=== PATIENT | female | born 1965 | race Caucasian/White ===

== ENCOUNTER 2024-08-22 07:02 | Day surgery (SDC) | payer OTHER, SELFPAY ==
--- OUTSIDE RECORDS SUMMARY | 2024-08-15 15:29 | XMS_ITS | Referral Summary ---
Author Organization [facility] Address [address] [place] [address] Care Team Providers Care Chiropractic Teacher Name Role Phone Jannet Roger Primary Care Provider [phone] Encounters Date Type Department Care Team Description 07/14/2024 9:22 AM EDT - 07/14/2024 12:21 PM EDT Emergency [facility] Emergency Department [address] [place] [phone] Chris Steele MD Abdominal pain, unspecified abdominal location (Primary Dx) Discharge Disposition: Home or Self Care (01) 06/06/2024 Orders Only [facility] [address] [place] [address] Jannet Roger Diabetes mellitus, latent (Primary Dx) 05/19/2024 myChart Message Initial Department [address] [place] [phone] Mychart, Generic Provider Questionnaire Submission 05/17/2024 1:05 PM EST Lab [facility] Draw Site Department [address] [place] [address] Abdominal pain, unspecified abdominal location (Primary Dx) from Last 3 Months Allergies Active Allergy Reactions Criticality Noted Date Comments Amitriptyline Dizziness,Unknown,O ther (see comments) Medium 03/06/2013 Impairs vision. Diplopia double vision Baclofen Other (see comments) 12/16/2023 Bupropion Nausea 08/22/2021 Cephalexin Anaphylaxis,Hives,S welling High 03/06/2013 face Gabapentin Diarrhea,Nausea 05/29/2019 Naproxen Other (see comments),Swelling High 03/06/2013 GI upset Throat swells Nsaids (Non-Steroidal Anti-Inflammatory Drug) Anaphylaxis,Swellin g High 05/29/2019 Throat swellling Sulfa (Sulfonamide Antibiotics) Nausea High 03/06/2013 Tramadol Other (see comments) Low 05/16/2023 Double vision Medications omeprazole OTC (PriLOSEC OTC) 20 mg EC tablet Take 40 mg by mouth in the morning. Active valACYclovir (VALTREX) 500 mg tablet Take 1 tablet by mouth 2 times a day as needed (outbreak). Active Rozerem 8 mg tablet Take 1 tablet by mouth nightly. Active Lyrica 25 mg capsule Take 1 capsule 3 times a day by oral route. 4 Active pravastatin (PRAVACHOL) 40 mg tablet Take 40 mg by mouth nightly. Active oxyCODONE-aceta minophen (PERCOCET) 10-325 mg per tablet Take 1 tablet by mouth 4 times a day. 4 Active naloxone HCl (Narcan) 4 mg/actuation nasal spray take 2 spray BY NASAL ROUTE as directed by prescriber if needed Active lidocaine (XYLOCAINE) 5% ointment 6 inches 3 times a day. 4 Active dextroamphetami ne-amphetamine (ADDERALL) 10 mg tablet Take 10 mg by mouth in the morning. Active cyanocobalamin (VITAMIN B12) 500 mcg tablet Take 500 mcg by mouth in the morning. Active cetirizine (ZyrTEC) 10 mg tablet Take 10 mg by mouth in the morning. Active carisoprodoL (SOMA) 350 mg tablet 4 Active albuterol (ProAir HFA) 90 mcg inhaler Inhale 2 puffs by mouth every [address]. [address] (CYMBALTA) 30 mg capsule Take 30 mg by mouth once a day. Active prednisoLONE acetate (PRED FORTE) 1% ophthalmic suspension Instill 1 drop into the right eye 4 times a day. Instill 1 drop into surgical EYE 4x a day 1 wk, 3x a day, 2x a day 1 wk, 1x a day 1 wk - then stop 5 mL 1 4 Active Social History Tobacco Use Types Packs/Day Years Used Date Smoking Tobacco: Every Day Cigarettes 0.3 26.3 Started: 1998 Smokeless Tobacco: Never Tobacco Cessation:Ready to Q uit: Not Asked; Counseling Given: Not Answered Alcohol Use Standard Drinks/Week Comments Not Currently 0 (1 standard drink = 0.6 oz pur e alcohol) Comments No Sex and Gender Information Value Date Recorded Sex Assigned at Female 08/30/2023 11:02 AM EDT Legal Sex Female 12:05 AM EDT Gender Identity Female 12/16/2023 4:16 PM EDT Sexual Orientation Straight 01/16/2024 8: 48 AM EDT Last Filed Vital Signs Vital Sign Reading Time Taken Comments Blood Pressure 105/66 07/14/2024 9:44 AM EDT Pulse 68 07/14/2024 9:44 AM EDT Temperature 36.6 ??C (97.8 ??F) 07/14/2024 9:44 AM ED T Respiratory Rate 20 07/14/2024 9:44 AM EDT Oxygen Saturation 99% 07/14/2024 9:44 AM EDT Inhaled Oxygen Concentration - - Weight 70.3 kg (155 lb) 07/14/2024 9:20 AM EDT Height 157.5 cm (5' 2 ) 01/23/2024 8:40 AM EDT Body Mass Index 28.35 01/23/2024 8:40 AM EDT Plan of Treatment Upcoming Encounters Date Type Department Care Team (Late st Contact Info) Description 08/26/2024 Orders Only Shweta ANGULO @ [address] [address] [address] [place] [address] [place] [phone] Generalized abdominal pain 08/26/2024 1:15 PM EDT Appointment Shweta ANGULO @ [address] [address] 04/08/2025 10:15 AM EST Office Visit [facility] Ophthalmology [address] [place] [phone] Jessica Cardozo MD [address] [place] [phone] Medical Devices Implanted Type Area Employee Adviser Device Identifier Shelf Expiration Date Model / Serial / Lot System Lens Intraocular Posterior Chamber Aspheric Preloaded Tensionglide Plunger 18.5 Diopter Ultrasert [employer] - [id number] - [id number] Implanted:Qty: 1 on 01/23/2024 by Jessica Cardozo MD at [facility] Lens ANAID 08/22/2025 [id number] 18.5 / [id number] / Procedures * Due to [place] state law, this organization might not be sharing negative HIV tests. Procedure Name Priority Date/Time Associated Diagnosis Comments CT ABDOMEN PELVIS W CONTRAST STAT 07/14/2024 10:34 AM EDT RAPID COVID-19, FLU A, FLU B & RSV RNA PCR, SYMPTOMATIC (ED ONLY) STAT 07/14/2024 9:44 AM EDT LIPASE STAT 07/14/2024 9:41 AM EDT COMPREHENSIVE METABOLIC PANEL STAT 07/14/2024 9:41 AM EDT CBC AUTO DIFFERENTIAL STAT 07/14/2024 9:41 AM EDT SMEAR REVIEW Routine 05/17/2024 1:09 PM EST Abdominal pain, unspecified abdominal location IMMUNOGLOBULINS PANEL (IGG, IGA, IGM) Routine 05/17/2024 1:09 PM EST Abdominal pain, unspecified abdominal location CELIAC DISEASE DIAGNOSITC PANEL Routine 05/17/2024 1:09 PM EST Abdominal pain, unspecified abdominal location TISSUE TRANSGLUTAMINASE (TTG), IGA Routine 05/17/2024 1:09 PM EST Abdominal pain, unspecified abdominal location CBC AUTO DIFFERENTIAL Routine 05/17/2024 1:09 PM EST Abdominal pain, unspecified abdominal location LIPASE Routine 05/17/2024 1:09 PM EST Abdominal pain, unspecified abdominal location HEPATIC FUNCTION PANEL Routine 1:09 PM EST Abdominal pain, unspecified abdominal location from Last 3 Months Results * Due to [place] state law, this organization might not be sharing negative HIV tests. * CT Abd Pelvis W Contrast (07/14/2024 10:34 AM EDT) Anatomical Region Laterality Modality Body Computed Tomogra phy 07/14/2024 10:4 5 AM EDT Impressions 07/14/2024 11:16 AM EDT 1. ??No acute abnormality in the abdomen and pelvis. 2. ??Incidentally noted is a 0.7 cm hypodense ovoid lesion within the body of the pancreas. Differential could include unilocular cyst or intraductal papillary mucinous neoplasm. An MRCP can be obtained on a nonemergent outpatient basis for further characterization. (Incidental finding) A(n) Incidental - ED actionable finding has been communicated to the ordering or responsible provider via the [employer] system on 07/14/2024 11:16 AM. ??Receipt of this communication by the responsible provider will be documented in [employer] upon receiving acknowledgement if applicable, Message ID [id number]. I, Serge Chen, have reviewed the examination and concur with the findings as reported or so edited. Trainee: ??Carlitos Green If this radiology report contains a blank impression section, it is an incomplete radiology report. ??Please contact the interpreting radiologist or applicable radiology division as soon as possible to obtain the completed interpretation. ? Workstation ID: [id number] Up-to-date CT equipment and radiation dose reduction techniques were employed. CTDIvol: 13.2 mGy. DLP: 555 mGy-cm. Narrative 07/14/2024 11:16 AM EDT EXAMINATION: CT ABDOMEN PELVIS W CONTRAST INDICATION: Left-sided abd pain, recently diagnosed diverticulitis, completed abx, n/v/d/constipation TECHNIQUE: Images of the abdomen and pelvis were obtained with intravenous contrast. Coronal and sagittal reformats were generated. COMPARISON: Chest radiographs from 08/27/2023. ?? FINDINGS: LOWER THORAX: Minimal dependent bibasilar and lingular atelectasis. No pleural effusion. Normal cardiac size and morphology. Pericardium is within normal limits. HEPATOBILIARY: There is an area of focal fatty sparing adjacent to the fissure for ligamentum teres. Patent portal and hepatic veins. Normal gallbladder. No biliary ductal dilatation. SPLEEN: No splenomegaly. PANCREAS: There is a 0.7 cm hypodense ovoid lesion, too small to accurately characterize, within the body of the pancreas (2:36). No ductal dilatation. ADRENAL GLANDS: No adrenal nodules. KIDNEYS/URETERS: No hydronephrosis, calculi, or solid mass lesions. GI TRACT: No distention or wall thickening. ??Diverticula are seen scattered throughout the large bowel, most prominent in descending and sigmoid colon. ??There is no evidence of acute diverticulitis, no pericolonic collection. ??Large bowel is predominantly collapsed. ??No evidence of small bowel obstruction. ??The appendix is within normal limits. PERITONEUM/RETROPERITONEUM: No ascites or free air. LYMPH NODES: No lymphadenopathy. VESSELS: Abdominal aorta is nonaneurysmal and is normal in caliber. Mild atherosclerosis of the distal abdominal aorta tributaries. The inferior vena cava is within normal limits. The hepatic, splenic, superior mesenteric, and portal veins are patent. PELVIC ORGANS/BLADDER: Urinary bladder is within normal limits. Surgical absence of the uterus. BONES AND SOFT TISSUES: No acute osseous abnormality is. Mild multifocal disc degeneration and facet arthropathy throughout the visualized thoracolumbar spine. Resulting Agency Comment [id number] Chris Steele MD [facility] CT PROCEDURES Final Result * Rapid COVID-19, FLU A, FLU B & RSV RNA PCR, Symptomatic (ED ONLY) (07/14/2024 9:44 AM EDT) PCR, SARS CoV-2 RNA Not Detected Not Detected [facility] [facility] 07/14/2024 10:53 AM EDT [facility] Flu A RNA PCR Not Detected Not Detected [employer]ID [employer] 07/14/2024 10:53 AM EDT [facility] Flu B RNA PCR Not Detected Not Detected CEPHEID [employer] 07/14/2024 10:53 AM EDT [facility] RSV RNA PCR Not Detected Not Detected [employer] GENEXPERT 07/14/2024 10:53 AM EDT [facility] Comment: Limitations: This RSV test is suitable for the pediatric population (less than 19 years of age) only. Performance characteristics have not been established for use with patients older than 19 years of age and immunocompromised patients. Test results must be evaluated in conjuction with other clinical data available to the physician. Swab (Nares) Non-Blood Collection / Unknown 07/14/2024 9:44 AM EDT 07/14/2024 10:05 AM EDT [facility] - 07/14/2024 10:53 AM EDT Methodology: The Open [employer]ner[employer] GeneXpert CoV-2/Flu/RSV plus assay is For Use Under an Emergency Use Authorization (EUA) Only with [employer]. The CoV-2/Flu/RSV plus assay is a rapid, multiplexed real-time RT-PCR assay intended for the simultaneous qualitative detection and differentiation of RNA from SARS-CoV-2, influenza A, influenza B, and Respiratory Syncytial Virus (RSV) in specimens collected from individuals suspected of a respiratory viral infection, by their healthcare provider. A positive test result for SARS-CoV-2, influenza or RSV indicates that RNA from that virus was detected. A negative test result indicates that RNA virus was not present in the specimen above the limit of detection. Therefore, a negative result does not rule out SARS-CoV-2, influenza or RSV infection and should not be used as the sole basis for treatment or other patient management decisions. us Chris Steele MD LAB BODY FLUIDS AND STOOLS ORD ERABLES Final Result [facility] [address] [address] [place] [address], * CBC Auto Differential (07/14/2024 9:41 AM EDT) Only the most recent of2 resultswithin the time period is included. WBC 9.1 4.8 - 10.8 10*3/uL 07/14/2024 9:47 AM EDT [facility] RBC 4.42 4.20 - 5.40 10*6/uL 07/14/2024 9:47 AM EDT [facility] Hemoglobin 13.9 11.7 - 15.5 g/dL 07/14/2024 9:47 AM EDT [facility] Hematocrit 39.3 35.7 - 45.8 % 07/14/2024 9:47 AM EDT [facility] MCV 88.9 81.0 - 99.0 fL 07/14/2024 9:47 AM EDT [facility] MCH 31.4 26.0 - 34.0 pg 07/14/2024 9:47 AM EDT [facility] MCHC 35.4 31.0 - 36.0 g/dL 07/14/2024 9:47 AM EDT [facility] RDW 14.0 12.0 - 15.0 % 07/14/2024 9:47 AM EDT [facility] RDW Standard Deviation 45.6 36.4 - 46.3 fL 07/14/2024 9:47 AM EDT [facility] Platelets 342 140 - 440 10*3/uL 07/14/2024 9:47 AM EDT [facility] MPV 10.8 9.4 - 12.3 fL 07/14/2024 9:47 AM EDT [facility] Neutrophil % 72.9 50.0 - 75.0 % 07/14/2024 9:47 AM EDT [facility] Immature Grans % 0.2 0.0 - 0.9 % 07/14/2024 9:47 AM EDT [facility] Lymphocyte % 20.0 20.0 - 44.0 % 07/14/2024 9:47 AM EDT [facility] Monocyte % 5.5 0.0 - 14.0 % 07/14/2024 9:47 AM EDT [facility] Eosinophil % 0.3 0.0 - 5.0 % 07/14/2024 9:47 AM EDT [facility] Basophil % 1.1 0.0 - 2.0 % 07/14/2024 9:47 AM EDT [facility] Neutrophil # 6.64 1.80 - 7.70 10*3/uL 07/14/2024 9:47 AM EDT [facility] Immature Grans # <0.03 0.00 - 0.03 10*3/uL 07/14/2024 9:47 AM EDT [facility] Lymphocyte # 1.80 1.00 - 4.75 10*3/uL 07/14/2024 9:47 AM EDT [facility] Monocyte # 0.50 0.00 - 0.60 10*3/uL 07/14/2024 9:47 AM EDT [facility] Eosinophil # <0.03 0.00 - 0.80 10*3/uL 07/14/2024 9:47 AM EDT [facility] Basophil # 0.10 0.00 - 0.20 10*3/uL 07/14/2024 9:47 AM EDT [facility] nRBC % 0.0 0 - 0 /100 WBCs 07/14/2024 9:47 AM EDT [facility] nRBC # <0.01 0.00 - 0.13 10*3/uL 07/14/2024 9:47 AM EDT [facility] Blood Structure of peripheral vein / Unknown Venipuncture / Unknown 07/14/2024 9:41 AM EDT 07/14/2024 9:45 AM EDT us Chris Steele MD LAB BLOOD ORDERABLES Final Res ult [facility] [address] [facility] [address] [place] [address], [place] [phone] * Lipase (07/14/2024 9:41 AM EDT) Only the most recent of2 resultswithin the time period is included. Lipase 27 13 - 60 U/L 07/14/2024 11:03 AM EDT [facility] Blood Structure of peripheral vein / Unknown Venipuncture / Unknown 07/14/2024 9:41 AM EDT 07/14/2024 9:45 AM EDT us Chris Steele MD LAB BLOOD ORDERABLES Final Res ult [facility] [address] [place] [address] [address] [place] [address], * (ABNORMAL) Comprehensive Metabolic Panel (07/14/2024 9:41 AM EDT) NA 137 136 - 145 mmol/L 07/14/2024 11:03 AM EDT [facility] K 07/14/2024 11:03 AM EDT [facility] Comment:TNP - Sample Hemolyz ed Cl 106 98 - 109 mmol/L 07/14/2024 11:03 AM EDT [facility] CO2 17(L) 22 - 32 mmol/L 07/14/2024 11:03 AM EDT [facility] Anion Gap 07/14/2024 11:03 AM EDT [facility] Comment:TNP - Sample Hemolyz ed Glucose 119(H) 60 - 99 mg/dL 07/14/2024 11:03 AM EDT [facility] Creatinine 0.58 0.50 - 1.12 mg/dL 07/14/2024 11:03 AM EDT [facility] Calcium 9.8 8.4 - 10.4 mg/dL 07/14/2024 11:03 AM EDT [facility] Total Protein 7.8 6.6 - 8.7 g/dL 07/14/2024 11:03 AM EDT [facility] Albumin 4.2 3.5 - 5.0 g/dL 07/14/2024 11:03 AM EDT [facility] Bilirubin, Total 0.4 0.2 - 1.2 mg/dL 07/14/2024 11:03 AM EDT [facility] Alkaline Phosphatase 77 40 - 129 U/L 07/14/2024 11:03 AM EDT [facility] AST 07/14/2024 11:03 AM EDT [facility] Comment:TNP - Sample Hemolyz ed ALT 07/14/2024 11:03 AM EDT [facility] Comment:TNP - Sample Hemolyz ed BUN 7 6 - 20 mg/dL 07/14/2024 11:03 AM EDT [facility] eGFR >90 >=60 mL/min/1. 73m2 07/14/2024 11:03 AM EDT [facility] Comment:The estimated glomer ular filtration rate (eGFR) is calculated using a new formula developed by the NKF-ASN task force to eliminate race-based correction factors. The new formula uses serum/plasma creatinine, age, and gender to determine eGFR. A value below 60mls/min might indicate kidney disease and will be flagged. For additional information, see Galloway et al, Am J Kidney Dis. 2021;79(2):268- 288, A Unifying Approach for GFR estimation: Recommendations of the NKF-ASN Task Force on Reassessing the Inclusion of Race in Diagnosing Kidney Disease . Globulin, Total 3.6 2.1 - 4.2 g/dL 07/14/2024 11:03 AM EDT [facility] A/G Ratio 1.2(L) 1.5 - 3.0 07/14/2024 11:03 AM EDT [facility] Blood Structure of peripheral vein / Unknown Venipuncture / Unknown 07/14/2024 9:41 AM EDT 07/14/2024 9:45 AM EDT us Chris Steele MD LAB BLOOD ORDERABLES Final Res ult [facility] [address] [address] [place] [address], * (ABNORMAL) Smear Review (05/17/2024 1:09 PM EST) Platelet Estimate Adequate Adequate 05/17/2024 1:49 PM EST [facility] RBC Morphology Present(A) Normal, No clinically significant RBC morphology present (ICSH guidelines, 2015). 05/17/2024 1:49 PM EST [facility] Hypochromia 1+(A) Not Present 05/17/2024 1:49 PM EST [facility] Macrocytes 1+(A) Not Present 05/17/2024 1:49 PM EST [facility] Target Cells 1+(A) Not Present 05/17/2024 1:49 PM EST [facility] Blood Structure of peripheral vein / Unknown Venipuncture / Unknown 05/17/2024 1:09 PM EST 05/17/2024 1:16 PM EST [facility] LAB BLOOD ORDERABLES Final Resu lt Performing Organization Address City/State/[facility] Co de Phone Number [address] [address], * Celiac Diagnostic Panel w/Gliadin, All Ages (Includes: IgA, tTG IgA/IgG and Giadin IgA/IgG) (05/17/2024 1:09 PM EST) Tissue Transglutaminase Ab, IgG <1.0 U/mL 05/20/2024 4:24 PM EST [employer] Comment: Value ?Interpretation ----- ? <15.0 ?Antibody not detected > or = 15.0 ?Antibody detected Tissue Transglutaminase Ab, IgA <1.0 U/mL 05/20/2024 4:24 PM EST [employer] Comment: Value ?Interpretation ----- ? <15.0 ?Antibody not detected > or = 15.0 ?Antibody detected Gliadin Ab IgA <1.0 U/mL 05/20/2024 4:24 PM EST [facility] Comment: Value ?Interpretation ----- ? <15.0 ?Antibody not detected > or = 15.0 ?Antibody detected Gliadin Ab IgG <1.0 U/mL 05/20/2024 4:24 PM EST [facility] Comment: Value ?Interpretation ----- ? <15.0 ?Antibody not detected > or = 15.0 ?Antibody detected Immunoglobulin A 262 47 - 310 mg/dL 05/20/2024 4:24 PM EST [facility] Blood Structure of peripheral vein / Unknown Venipuncture / Unknown 05/17/2024 1:09 PM EST 05/17/2024 1:16 PM EST Narrative [facility] - 05/20/2024 4:24 PM EST [facility] Received Date: [facility] LAB BLOOD ORDERABLES Final Resu lt [facility] [address] [facility] [address], [place] [address], * Tissue Transglutaminase (tTG) Antibody, IgA (05/17/2024 1:09 PM EST) Tissue Transglutaminase Ab, IgA <1.0 U/mL 05/19/2024 9:35 PM EST [facility] Comment: Value ?Interpretation ----- ? <15.0 ?Antibody not detected > or = 15.0 ?Antibody detected Blood Structure of peripheral vein / Unknown Venipuncture / Unknown 05/17/2024 1:09 PM EST 05/17/2024 1:16 PM EST Narrative [facility] - 05/19/2024 9:35 PM EST [facility] Received Date: [facility] LAB BLOOD ORDERABLES Final Resu lt Performing Organization Address [facility]/ZIP Co de Phone Number [facility] [address] [place] [address], [facility] [place] [address], [place] [phone] * Immunoglobulins Panel (IgG, IgA, IgM) (05/17/2024 1:09 PM EST) Pathologist [facility] Immunoglobulin A 258 47 - 310 mg/dL 05/19/2024 6:54 PM EST [facility] IgG, Serum 1192 600 - 1640 mg/dL 05/19/2024 6:54 PM EST [facility] Immunoglobulin M 95 50 - 300 mg/dL 05/19/2024 6:54 PM EST [facility] Blood Structure of peripheral vein / Unknown Venipuncture / Unknown 05/17/2024 1:09 PM EST 05/17/2024 1:16 PM EST Narrative [facility] - 05/19/2024 6:54 PM EST [facility] Received Date: [facility] LAB BLOOD ORDERABLES Final Resu lt Performing Organization Address [facility] Co de Phone Number [facility] [address] [place] [address], [place] [address], [place] [phone] * (ABNORMAL) Hepatic Function Panel (05/17/2024 1:09 PM EST) Pathologist [facility] Total Protein 7.0 6.6 - 8.7 g/dL 05/17/2024 1:50 PM EST [facility] Albumin 4.0 3.5 - 5.0 g/dL 05/17/2024 1:50 PM EST [facility] Globulin, Total 3.0 2.1 - 4.2 g/dL 05/17/2024 1:50 PM EST [facility] Bilirubin, Total 0.2 0.2 - 1.2 mg/dL 05/17/2024 1:50 PM EST [facility] Bilirubin, Direct 0.1 <=0.3 mg/dL 05/17/2024 1:50 PM EST [facility] Alkaline Phosphatase 81 40 - 129 U/L 05/17/2024 1:50 PM EST [facility] AST 18 0 - 33 U/L 05/17/2024 1:50 PM EST [facility] ALT 10 <=33 U/L 05/17/2024 1:50 PM EST [facility] Bilirubin, Indirect 0.10 <=0.70 mg/dL 05/17/2024 1:50 PM EST [facility] A/G Ratio 1.3(L) 1.5 - 3.0 05/17/2024 1:50 PM EST [facility] Blood Structure of peripheral vein / Unknown Venipuncture / Unknown 05/17/2024 1:09 PM EST 05/17/2024 1:16 PM EST [facility] LAB BLOOD ORDERABLES Final Resu lt Performing Organization Address City/State/[facility] Co de Phone Number [facility] [address] [place] [phone], from Last 3 Months Insurance [employer] Advance Directives * Full Code (Latest Code Status on File) Date Activated Date Inactivated Comments 01/23/2024 8:32 AM 01/23/2024 1:48 PM Care Teams Chiropractic Teacher Relationship Specialty Start Date End Date Jannet Roger [facility] [place] [address] PCP - General 12/16/23
--- OUTSIDE RECORDS SUMMARY | 2024-08-15 15:29 | XMS_ITS | Clinical Summary ---
Author Organization [facility] Address [address] [place] [address] Care Team Providers Care Specialist Wound Care Name Role Phone Jazz Wynn PA-C Primary Care Provider [phone] Source Comments PLEASE NOTE, if this patient is a minor, it may be UNLAWFUL to discuss sensitive information that is contained in these records (such as FAMILY PLANNING, MENTAL HEALTH or SUBSTANCE ABUSE) with the minor patient's parent or other person without the patient's specific authorization.[facility] Allergies Active Allergy Reactions Criticality Noted Date Comments Amitriptyline Other (See Comments) Medium 03/06/2013 Impairs vision. Cephalexin Swelling High 03/06/2013 Naproxen 03/06/2013 GI upset Oxycodone-Acetaminophen Itching High 03/06/2013 Sulfa (Sulfonamide Antibiotics) Nausea Only Medium 03/06/2013 Medications valACYclovir (VALTREX) 500 mg tabletIndication s:Oral herpes Take 1 Tab by mouth 2 (two) times daily 180 Tab 1 7 Active hydrOXYzine HCl (ATARAX) 50 mg tabletIndication s:Anxiety and depression Take 0.5 Tabs by mouth 3 (three) times daily as needed for anxiety 90 Tab 1 7 Active venlafaxine (EFFEXOR-XR) 150 mg 24 hr capsuleIndicatio ns:Anxiety and depression Take 1 Cap by mouth once daily with breakfast Swallow whole. Do not break, crush or chew. 30 Cap 3 7 Active acetaminophen-co deine (TYLENOL #3) 300-30 mg per tabletIndication s:Bilateral hand pain Take 1 Tab by mouth once daily as needed for pain 30 Tab 7 Active diclofenac (VOLTAREN) 1 % gelIndications:S prain of left thumb, unspecified site of finger, subsequent encounter apply 2 grams to affected area four times a day 100 g 4 7 Active omeprazole (PRILOSEC) [address] capsuleIndicatio ns:Gastroesophag eal reflux disease, esophagitis presence not specified take 1 capsule by mouth every morning BEFORE BREAKFAST 30 Cap 1 7 Active Active Problems Problem Noted Date Diagnosed Date Anxiety and depression 09/15/2016 History of endometriosis 09/15/2016 Overview (09/15/2016): -s/p hysterectomy 2006 Primary osteoarthritis of fi rst carpometacarpal joint of left hand 08/13/2016 Overview (08/13/2016): Seen [facility] 08/07/16 dx left TM (basal joint) arthritis s/p injection and thumb spica splint. Diverticulosis of colon 06/07/2015 Overview (06/07/2015): tx diverticulitis 05/25/15 at [facility] Oral herpes 06/05/2011 Overview (07/02/2013): Since age 7. Hyperlipidemia- diet control 11/01/2010 Overview (12/14/2016): 10 year ASCVD risk = 4.1 % Vitamin D deficiency 11/01/2010 Chronic low back pain 07/26/2010 Overview (07/02/2013): MRI 08/27/10 negative; SI injection 07/12/11 via [facility]. EMG 01/17/12 chronic left L5 Radiculopathy Tobacco abuse disorder GERD (gastroesophageal reflux disease) Resolved Problems Problem Noted Date Diagnosed Date Resolved Date Costochondritis 10/17/2016 12/07/2016 Plantar fasciitis of left foot 09/21/2014 09/15/2016 Right knee pain 09/15/2016 Overview (10/15/2013): X-RAYS 02/2013 MINIMAL DEGENERATIVE CHANGES. PES ANSERINE BURSITIS PER [facility] 10/03/13. Immunizations Immunization Administration Dates Next Due HEP A-HEP B 07/11/2011,01/09/2011 Hep B, Adult/Adol (ENERGIX/RECOMBIVAX) 1 INFLUENZA, SEASONAL, INJECTABLE 12/07/2016,02/09,03/07/2013 Social History Tobacco Use Types Packs/Day Years Used Date Smoking Tobacco: Every Day Cigarettes Smokeless Tobacco: Never Alcohol Use Standard Drinks/Week Comments Yes 0 (1 standard drink = 0.6 oz pur e alcohol) wine 1-2 times per week Social Connections Answer Date Recorded Social Connections and Isolation 0 12/14/2018 Financial Resource Strain Answer Date R ecorded Financial Resource Strain 0 2018 Stress Answer Date Recorded Stress 0 12/14/2018 Physical Activity Answer Date Recorded Physical Activity 0 12/14/2018 Food Insecurity Answer Date Recorded Food 0 12/14/2018 Transportation Needs Answer Date Record ed Transportation 0 12/14/2018 Housing Stability Answer Date Recorded Housing 0 12/14/2018 Safety and Environment Answer Date Tim rded Safety 0 12/14/2018 Utilities Answer Date Recorded Utilities 0 12/14/2018 Employment Answer Date Recorded Employment 0 12/14/2018 Comments No Sex and Gender Information Value Date Recorded Sex Assigned at Not on file Legal Sex Female 11:36 AM PDT Gender Identity Not on file Sexual Orientation Not on file Last Filed Vital Signs Vital Sign Reading Time Taken Comments Blood Pressure 110/79 12/07/2016 1:59 PM EDT Pulse 64 12/07/2016 1:59 PM EDT Temperature 36.7 ??C (98 ??F) 12/07/2016 1:59 PM EDT Respiratory Rate 16 12/07/2016 1:59 PM EDT Oxygen Saturation 98% 07/22/2016 9:26 AM EDT Inhaled Oxygen Concentration - - Weight 70.8 kg (156 lb) 12/07/2016 1:59 PM EDT Height 157.5 cm (5' 2 ) 12/07/2016 1:59 PM EDT Body Mass Index 28.53 12/07/2016 1:59 PM EDT Plan of Treatment Not on file Insurance [place] MEDICAID Care Teams Specialist Wound Care Relationship Specialty Start Date End Date Jazz Wynn PA-C [address] [place] [address] PCP - General 06/18/18
--- OUTSIDE RECORDS SUMMARY | 2024-08-15 15:29 | XMS_ITS | Clinical Summary ---
Author Organization [facility] Address [address] [facility] [place] [address] Care Team Providers Care Front End Loader Operator Name Role Phone Unavailable Primary Care Provider Unavailabl e Social History Tobacco Use Types Packs/Day Years Used Date Smoking Tobacco: Never Assessed Comments Unknown Sex and Gender Information Value Date Recorded Sex Assigned at Not on file Legal Sex Female 7:38 PM EST Gender Identity Not on file Sexual Orientation Not on file Plan of Treatment Health Maintenance Due Date Last Done Comments Colorectal Cancer: COLONOSCO PY Screening every 10 yrs (or Modifier) 1967 Depression: Screening Annual ly using PHQ-2/9 in Adults 18 yrs or above (or HM Modifier)([facility]) 1965 Hepatitis C Virus Infection in Adolescents and Adults: Screening (or Modifier) ([facility]) 07/30/1985 [facility] Screening Reminder: Jemma becker for all adults ([facility]) 07/30/1985 Tobacco Smoking Cessation: i n Adults excluding Women: Behavioral and Pharmacotherapy Interventions ([facility]) 07/30/1985 DTaP/Tdap/Td Vaccines ([facility]) (1 - Tdap) 07/30/1986 Cervical Cancer Screenin 1-65 yrs of age (or Modifier) 07/30/1988 Cervical Cancer Screening: P ap every 3 yrs pts age 21-65 07/30/1988 Cervical Cancer: Pap Screeni ng with Modifier timing ([facility]) 07/30/1988 Cervical Cancer: hrHPV alone or with cotesting Pap for Pts 30-65yrs screening every 5yrs ([facility]) 07/30/1988 Colorectal Cancer Screening 45 -75 Yrs (or HM Modifier ) 07/30/2012 Colorectal Cancer: FLEXIBLE SIGMOIDOSCOPY Screening every 5 yrs 07/30/2012 Colorectal Cancer: Fecal Imm unochemical Test (FIT) Annually [facility] 07/30/2012 Colorectal Cancer: High-sens itivity gFOBT Screening Annually [facility] 07/30/2012 Colorectal Cancer: Stool Col oguard Screening every 3 yrs 07/30/2012 Colorectal Cancer:CT Colonography Screening every 5 yr s 07/30/2012 Lipid Screening: Every 5 yrs for Women aged 45+ (or HM Modifier) ([facility]) 07/30/2013 Breast Cancer: Screening Jemma ually age 50-74 yrs (or HM Modifier)([facility]) 07/30/2017 Pneumococcal Vaccination Scr eening: Patients 50+ yrs of age ([facility]) (1 of 1 - PCV) 07/30/2017 Zoster/Shingles Vaccine Seri es Screening: Adults aged 18+ yrs (or HM Modifiers)([facility]) (1 of 2) 07/30/2017 COVID-19 Vaccine Screening: Initial Series and Booster Status ([facility]) (2023- season) 2023 Flu Vaccination: Yearly for ages 18mos through 64 years (or Modifier)([facility]) 11/21/2024 Medical Devices Not on file [place] [address] [place] [address] PLAN
--- OUTSIDE RECORDS SUMMARY | 2024-08-15 15:29 | XMS_ITS | Clinical Summary ---
Author Organization [facility] Address [address] [place] [address] Care Team Providers Care Hospice Office Coordinator Name Role Phone Unavailable Primary Care Provider Unavailabl e Encounters Date Type Department Care Team Description 06/02/2024 Telephone All of [address] [id number] [facility]ola [facility] 05/30/2024 Telephone All of [address] [phone] Yael Dukes [facility] 05/21/2024 Telephone All of [address] [id number] aYel Dukes [facility] 05/21/2024 Telephone All of [address] [phone] Svetlana Mora [facility] 05/21/2024 Telephone All of [address] [id number] Svetlana Mora [facility] from Last 3 Months Social History Tobacco Use Types Packs/Day Years Used Date Smoking Tobacco: Never Assessed Comments Unknown Sex and Gender Information Value Date Recorded Sex Assigned at Not on file Legal Sex Female 1:08 PM EDT Gender Identity Not on file Sexual Orientation Not on file Plan of Treatment Health Maintenance Due Date Last Done Comments Hepatitis C Screening 1967 Pap Smear 1983 DTaP/Tdap/Td (1 - Tdap) 07/30/1985 Hep B (1 of 3 - 19+ 3-dose series) 07/30/1986 Mammogram/Breast Imaging 2007 Colon Cancer Screening 07/30/2012 Pneumococcal 50+ years (1 of 1 - PCV) 07/30/2017 Zoster (Shingrix) (1 of 2) 07/30/2017 COVID-19 Vaccine (2023-2 5 season) 2023 Influenza (#1) 2023 HPV Vaccine Aged Out No longer eligi ble based on patient's age to complete this topic Hep A Aged Out No longer eligi ble based on patient's age to complete this topic Hib Aged Out No longer eligi ble based on patient's age to complete this topic Meningococcal ACWY Aged Out No longer eligible based on patient's age to complete this topic
--- OUTSIDE RECORDS SUMMARY | 2024-08-15 15:29 | XMS_ITS | Encounter Summary ---
Author Organization [facility] Address [address] [place] [address] Care Team Providers Care Collision Technician Name Role Phone Jannet Roger Primary Care Provider [phone] Encounter Details Date Type Department Care Team (Late st Contact Info) Description 06/06/2024 Orders Only [facility] [address] [place] [address] Jannet Roger [address] [place] [address] Diabetes mellitus, latent (Primary Dx) Social History Tobacco Use Types Packs/Day Years Used Date Smoking Tobacco: Every Day Cigarettes 0.3 26.3 Started: 1998 Smokeless Tobacco: Never Alcohol Use Standard Drinks/Week Comments Not Currently 0 (1 standard drink = 0.6 oz pur e alcohol) Comments No Sex and Gender Information Value Date Recorded Sex Assigned at Female 08/30/2023 11:02 AM EDT Legal Sex Female 12:05 AM EDT Gender Identity Female 12/16/2023 4:16 PM EDT Sexual Orientation Straight 01/16/2024 8 :48 AM EDT documented as of this encounter Plan of Treatment Upcoming Encounters Date Type Department Care Team (Late st Contact Info) Description 08/26/2024 Orders Only [facility] @ [facility] [address] [place] [address] Luis Burr [address] [place] [address] [facility] [address] [place] [id number] Generalized abdominal pain 08/26/2024 1:15 PM EDT Appointment Shweta ANGULO @ [facility] [address] [place] [address] 04/08/2025 10:15 AM EST Office Visit [facility] [address] [place] [phone] Jessica Cardozo MD [address] [place] [address] Scheduled Orders Name Type Priority Associated Diagnoses Orde r Schedule Lipid panel Lab Routine Diabetes mellitus, latent Expected: 06/06/2024, Expires: 06/06/2025 Comprehensive Metabolic Panel Lab Routine Diabetes mellitus, latent Expected: 06/06/2024, Expires: 06/06/2025 Hemoglobin A1c Lab Routine Diabetes mellitus, latent Expected: 06/06/2024, Expires: 06/06/2025 CBC Auto Differential Lab Routine Diabetes mellitus, latent Expected: 06/06/2024, Expires: 06/06/2025 documented as of this encounter Visit Diagnoses Diagnosis Diabetes mellitus, latent- Primary Secondary diabetes mellitus without mention of complication, not stated as uncontrolled, or unspecified Generalized abdominal pain Abdominal pain, generalized documented in this encounter Additional Health Concerns Infection Onset Date Last Indicated Resolved Time R/O Respiratory Virus Infection 07/14/2024 07/14/2024 10:53 AM EDT R/O Influenza 07/14/2024 07/14/2024 07/14/2024 10: 53 AM EDT COVID-19 - Suspected infection 07/14/2024 07/14/2024 07/14/2024 10:53 AM EDT R/O C.diff 07/14/2024 07/14/2024 07/14/2024 2:21 PM EDT documented as of this encounter Care Teams Collision Technician Relationship Specialty Start Date End Date Jannet Roger [address] [place] [phone] PCP - General 12/16/23 documented as of this encounter
--- OUTSIDE RECORDS SUMMARY | 2024-08-15 15:29 | XMS_ITS | Clinical Summary ---
Author Organization [facility] Address [address] [address] Phone Care Team Providers Care Motor Bike Mechanic Name Role Phone Darwin Fox MD Primary Care Provider Allergies Active Allergy Reactions Criticality Noted Date Comments Amitriptyline 04/30/2017 Gabapentin 05/29/2019 Cephalexin 04/30/2017 Naproxen 04/30/2017 Nsaids (Non-Steroidal Anti-I nflammatory Drug) 05/29/2019 Sulfa (Sulfonamide Antibiotics) 11/2017 Medications Medication Sig Dispensed Refills Start Date End Date Status omeprazole (PRILOSEC) 20 MG capsule Take 40 mg by mouth daily. Active valACYclovir (VALTREX) 500 MG tablet Take 500 mg by mouth daily. Active escitalopram oxalate (LEXAPRO) 20 MG tablet Take 20 mg by mouth daily. Active oxyCODONE-acetaminoph en (PERCOCET) 10-325 mg per tablet Take 1 tablet by mouth every 6 (six) hours as needed for pain (specific location in comments). Active cholecalciferol (VITAMIN D3) 5,000 unit capsuleIndications:Vi tamin D insufficiency Take 1 capsule (5,000 Units total) by mouth daily. 90 capsule 1 11/28/2019 Active cyanocobalamin, vitamin B-12, 1000 MCG tabletIndications:Vit reynoso B12 deficiency Take 1 tablet (1,000 mcg total) by mouth daily. 90 tablet 2 11/28/2019 Active pregabalin (LYRICA) 25 MG capsule Take 1 capsule (25 mg total) by mouth 2 (two) times a day. 60 capsule 11 12/17/2019 Active Active Problems Problem Noted Date Diagnosed Date Lateral epicondylitis of left elbow 11/27/2019 Assessment & Plan (11/27/2019 8:31 AM EDT): Joint protection, energy conservation, splinting. Formal OT ordered. Keep an appointment with orthopedic surgeons @ [facility] as arranged for on 12/03/2019. Chronic prescription opiate use 11/27/2019 Assessment & Plan (11/27/2019 8:33 AM EDT): Take exactly as prescribed, try to limit frequency by employing non-for pharmacologic measures such as topical creams, warm packs, patches, regular relaxation/mediation/positive imagery sessions etc. Build up regular exercise routine up to the goal of 30-45 minutes daily. Monitor for increasing shortness of breath, reduced respiratory drive, increasing constipation Chronic fatigue 11/27/2019 Assessment & Plan (11/30/2019 5:12 PM EDT): Balance rest & activity. Sleep hygiene. Well-balanced nutritionally diet. Proper hydration. Keep up-to-date with age-appropriate screenings and preventive strategies. Regular, gentle exercise routine. Arthralgia of multiple sites 05/29/2019 Assessment & Plan (11/30/2019 5:34 PM EDT): Joint protection, energy conservation. Gentle, regular exercise routine. Avoid falls, injuries, overuse. Keep body weight in ideal range for his height. She may benefit from topical cream such as Arnica, Biofreeze, Aspercreme versus medicated patches such as salonpas, icy hot patch 2-3 times daily and if necessary at bedtime x 3 weeks. Due to diffuse aches and pains, tenderness throughout the body and no signs of major systemic rheumatic diseases, infections or systemic inflammation she is at risk for fibromyalgia therefore I asked her to get book written by Dr Cuba Nascimento [employer] [facility] addressing management strategies for patients with fibromyalgia utilizing mindfulness approach. It is available and printed and audio version. She reported blurred vision with amitriptyline and upset stomach with gabapentin in the past. She may benefit from gradual increase of her current Lexapro from 20 mg to 30 mg every morning with breakfast. Additional benefit may come from warm pool therapy, gentle massage, yoga, cheo chi or Pilates. If pain or worse may consider local steroid injection. Assessment & Plan (06/02/2019 5:21 PM EST): Joint protection, energy conservation. Gentle, regular exercise routine. Avoid falls, injuries, overuse. Keep body weight in ideal range for his height. She may benefit from topical cream such as Arnica, Biofreeze, Aspercreme versus medicated patches such as salonpas, icy hot patch 2-3 times daily and if necessary at bedtime x 3 weeks. Formal physical therapy offered-patient hesitant at this time. Additional benefit may come from warm pool therapy, gentle massage, yoga, cheo chi or Pilates. If pain or worse may consider local steroid injection. ABRAM positive 05/29/2019 Assessment & Plan (06/02/2019 5:18 PM EST): I reviewed with Zahraa that low positive ABRAM in an individual 50-year old or older without any additional abnormalities may simply be a sign off immunologic senescence . I took the liberty of getting more specific tests to assure me that there are no abnormalities requiring attention at this time. She is educated to keep up-to-date with age-appropriate screenings and preventive strategies. Avoid sick contacts, injuries, overuse and the falls. Gentle, regular exercise routine as tolerated. Well-balanced nutritionally diet. Proper hydration. Sleep hygiene. Avoid sunburn. Work on complete smoking cessation ADONIS Status post carpal tunnel release of both wrists 05/29/2019 Assessment & Plan (06/02/2019 5:22 PM EST): Continue splinting, topical creams. Joint protection, energy conservation. Consider formal OT. Tobacco dependence 05/29/2019 Assessment & Plan (11/27/2019 8:36 AM EDT): I have spent at least 3 minutes on encouraging her to work on complete smoking cessation by reducing number of cigarettes smoked daily by 1 cigarette every week and be ready for dealing with cravings by stocking finger size healthy snacks such as small carrots, cucumbers, celery sticks etc. I reviewed with her multiple benefits of complete smoking cessation including but not limited to reduced risk of developing lung cancer, bladder cancer, cervical cancer, stroke and heart attack. Additional benefits include protestant of smell and taste sense. She got interested in enrolling into smart phone based smoking cessation program offered by [facility] and I provided her with appropriate pamphlet on it to get in touch with academic affairs coordinator Assessment & Plan (06/02/2019 5:20 PM EST): I have spent at least 3 minutes on encouraging her to work on complete smoking cessation by reducing number of cigarettes smoked daily by 1 cigarette every week and be ready for dealing with cravings by stocking finger size healthy snacks such as small carrots, cucumbers, celery sticks etc. I reviewed with her multiple benefits of complete smoking cessation including but not limited to reduced risk of developing lung cancer, bladder cancer, cervical cancer, stroke and heart attack. Additional benefits include protestant of smell and taste sense. Moderate episode of recurrent major depressive d isorder 05/29/2019 Assessment & Plan (11/27/2019 8:34 AM EDT): Continue antidepressive therapy as prescribed and consider regular personal psychotherapy Assessment & Plan (06/02/2019 5:20 PM EST): Continue antidepressive therapy as prescribed and consider regular personal psychotherapy Gastroesophageal reflux disease with esophagitis 05/29/2019 Assessment & Plan (11/27/2019 8:33 AM EDT): Avoid late, large, spicy meals. Keep headboard elevated at 45?? angle for nighttime. Assessment & Plan (06/02/2019 5:19 PM EST): Avoid late, large, spicy meals. Keep headboard elevated at 45?? angle for nighttime. Vitamin D insufficiency 05/29/2019 Assessment & Plan (11/27/2019 8:37 AM EDT): Serum level requested to make sure that she does not require additional supplementation. Assessment & Plan (06/02/2019 5:19 PM EST): Serum level requested to make sure that she does not require additional supplementation. Urinary frequency 05/29/2019 Social History Tobacco Use Types Packs/Day Years Used Date Smoking Tobacco: Every Day Smokeless Tobacco: Never Comments:3 cigarettes per da y Alcohol Use Standard Drinks/Week Comments Yes 0 (1 standard drink = 0.6 oz pur e alcohol) Education Answer Date Recorded Are you interested in more education? Not on winsome e 08/18/2022 Are you concerned about learning? Not on file 08/18/2022 No 08/18/2022 No 08/18/2022 Digital Access Answer Date Recorded No 09/16/2022 No 09/16/2022 No 09/16/2022 Reliable internet access at home? Not on file 09/16/2022 Device with a working camera? Not on file Sex and Gender Information Value Date Recorded Sex Assigned at Not on file Gender Identity Not on file Sexual Orientation Not on file Last Filed Vital Signs Vital Sign Reading Time Taken Comments Blood Pressure 122/80 11/27/2019 7:49 AM EDT Pulse 68 04/30/2017 4:38 PM EST Temperature 36.4 ??C (97.6 ??F) 04/30/2017 4:38 PM ES T Respiratory Rate - - Oxygen Saturation 97% 04/30/2017 4:38 PM EST Inhaled Oxygen Concentration - - Weight 73.8 kg (162 lb 12.8 oz) 11/27/2019 7:49 AM EDT Height 157.5 cm (5' 2.01 ) 11/27/2019 7:49 AM ED T Body Mass Index 29.77 11/27/2019 7:49 AM EDT Plan of Treatment Health Maintenance Due Date Last Done Comments LIPID PANEL 1967 DEPRESSION SCREENING 1979 SMOKING Hx and SMOKELESS TOBACCO SCREENING 07/30/1980 HEPATITIS C SCREENING 07/30/1985 HIV ONE-TIME SCREENING (18-65 YEARS) 07/30/1985 PNEUMOCOCCAL VACCINES (50+ years) (1 of 2 - PCV) 07/30/1986 PAP SMEAR 07/30/1988 MAMMOGRAM 2007 COLOGUARD 07/30/2012 COLONOSCOPY 07/30/2012 COLORECTAL CANCER SCREENING 07/30/2012 FIT TEST 07/30/2012 FOBT 07/30/2012 SIGMOIDOSCOPY 07/30/2012 VIRTUAL COLONOSCOPY 07/30/2012 ZOSTER VACCINES (2 of 2) 04/21/2020 02/25/2020 INFLUENZA VACCINE (#1) 2023 0, 02/10/2019, 01/05/2017, Additional history exists COVID-19 VACCINE ( season) 2023 11/04/2020, 11/04/2020 Adult Td,Tdap Booster 06/06/2027 06/06/2017 HEPATITIS A VACCINES Aged Out 07/11/2011, 01/10/20 11 No longer eligible based on patient's age to complete this topic HIB VACCINES Aged Out No longer eligi ble based on patient's age to complete this topic MENINGOCOCCAL VACCINES (ACWY) Aged Out No longer eligible based on patient's age to complete this topic Medical Devices Not on file Care Teams Motor Bike Mechanic Relationship Specialty Start Date End Date Darwin Fox MD [address] [place] [phone] PCP - General Family Medicine 05/29/19 Additional Source Comments The information contained in this document represents components of the legal health record. It is not the complete legal health record.[facility]
--- OUTSIDE RECORDS SUMMARY | 2024-08-15 15:29 | XMS_ITS | Clinical Summary ---
Author Organization [facility] Address [address] [place] [address] Care Team Providers Care Commercial Door Installer Name Role Phone Jannet Roger Primary Care Provider [phone] Allergies Active Allergy Reactions Criticality Noted Date [...] then stop 5 mL 1 4 Active Encounters Date Type Department Care Team Description 07/14/2024 9:22 AM EDT - 07/14/2024 12:21 PM EDT Emergency [facility] Emergency Department [address] [place] [phone] Chris Steele MD Abdominal pain, unspecified abdominal location (Primary Dx) Discharge Disposition: Home or Self Care (01) 06/06/2024 Orders Only [facility] Lab [address] [place] [address] Jannet Roger Diabetes mellitus, latent (Primary Dx) 05/19/2024 myChart Message Initial Department [address] [place] [id number] Mychart, Generic Provider Questionnaire Submission 05/17/2024 1:05 PM EST Lab [facility] Draw Site Department [address] [place] [address] Abdominal pain, unspecified abdominal location (Primary Dx) from Last 3 Months Social History Tobacco [...] Description 08/26/2024 Orders Only Shweta ANGULO @ [address] [address] [place] [address] [place] [address] [place] [phone] Generalized abdominal pain 08/26/2024 1:15 PM EDT Appointment Shweta ANGULO @ [address] [address] 04/08/2025 10:15 AM EST Office Visit [facility] Ophthalmology [address] [place] [address] Jessica Cardozo MD [address] [place] [address] Health Maintenance Due Date Last Done Comments Cologuard 1967 Colon Cancer Screening 1967 Colonoscopy 1967 FOBT / Fit Test 1967 HIV Screening 1967 Hepatitis C Screening 1967 Sigmoidoscopy 1967 Pneumococcal Vaccine: 50+ Ye ars (1 of 2 - PCV) 07/30/1986 DTaP,Tdap,and Td Vaccines (1 - Tdap) 07/30/1989 Zoster Vaccines (1 of 2) 07/30/2017 Mammogram 12/13/2020 12/13/2018 COVID-19 Vaccine (2 - 2023-2 5 season) 2023 11/04/2020 Alcohol/Substance Use Screening 04/23/2024 Depression Screening and Follow-Up 04/23/2024 Social Drivers of Health Jemma ual Screening 04/23/2024 RSV Vaccine (60+ years old a nd patients) (1 - 1-dose 75+ series) 07/30/2042 Hepatitis B Vaccines Completed 07/11/2011, 02/08/2011, 01/09/2011 Influenza Vaccine Completed 01/15/2024, , 12/07/2016, Additional history exists Medical Devices Implanted Type Area Ore Washer Device Identifier Shelf Expiration Date Model / Serial / Lot System Lens Intraocular Posterior Chamber Aspheric Preloaded Tensionglide Plunger 18.5 Diopter Ultrasert [employer] - [id number] - [id number] Implanted:Qty: 1 on 01/23/2024 by Jessica Cardozo MD at [facility] Lens ANAID 08/22/2025 [id number] 18.5 / [id number] / Procedures * Due to [place] state law, this organization might not be [...] Last 3 Months Results * Due to [place] state law, this organization might not be [...] the ordering or responsible provider via the Five Below system on 07/14/2024 11:16 AM. ??Receipt of this communication by the responsible provider will be documented in Five Below upon receiving acknowledgement if applicable, Message ID [id number]. I, Serge Chen, have reviewed the examination and concur with the findings as reported or so edited. Trainee: ??Carlitos Green If this radiology report contains a blank impression section, it is an incomplete radiology report. ??Please contact the interpreting radiologist or applicable radiology division as soon as possible to obtain the completed interpretation. ? Workstation ID: [id number] Up-to-date CT equipment and radiation dose reduction [...] the visualized thoracolumbar spine. Resulting Agency Comment [id number] Chris Steele MD IM CT PROCEDURES Final Result * Rapid COVID-19, FLU A, FLU B & RSV RNA PCR, Symptomatic (ED ONLY) (07/14/2024 9:44 AM EDT) [facility] PCR, SARS CoV-2 RNA Not Detected Not Detected [employer] 07/14/2024 10:53 AM EDT [facility] Flu A RNA PCR Not Detected Not Detected [employer] 07/14/2024 10:53 AM EDT [facility] Flu B RNA PCR Not Detected Not Detected [employer] 07/14/2024 10:53 AM EDT [facility] RSV RNA PCR Not Detected Not Detected [employer] 07/14/2024 10:53 AM EDT [facility] Comment: Limitations: This RSV test [...] 9:44 AM EDT 07/14/2024 10:05 AM EDT [facility] - 07/14/2024 10:53 AM EDT Methodology: The [employer] GeneXpert CoV-2/Flu/RSV plus assay is For Use Under an Emergency Use Authorization (EUA) Only with [employer]. The CoV-2/Flu/RSV plus assay is a [...] FLUIDS AND STOOLS ORD ERABLES Final Result [facility] [address] [facility] [place] [address], [place] [phone] * CBC Auto Differential (07/14/2024 9:41 AM EDT) Only the most recent of2 resultswithin the time period is included. WBC 9.1 4.8 - 10.8 10*3/uL 07/14/2024 9:47 AM EDT [facility] RBC 4.42 4.20 - 5.40 10*6/uL 07/14/2024 9:47 AM EDT [facility] Hemoglobin 13.9 11.7 - 15.5 g/dL 07/14/2024 9:47 AM EDT [facility] Hematocrit 39.3 35.7 - 45.8 % 07/14/2024 9:47 AM EDT [facility] MCV 88.9 81.0 - 99.0 fL 07/14/2024 9:47 AM EDT [facility] MCH 31.4 26.0 - 34.0 pg 07/14/2024 9:47 AM EDT [facility] MCHC 35.4 31.0 - 36.0 g/dL 07/14/2024 9:47 AM EDT [facility] RDW 14.0 12.0 - 15.0 % 07/14/2024 9:47 AM EDT [facility] RDW Standard Deviation 45.6 36.4 - 46.3 fL 07/14/2024 9:47 AM EDT [facility] Platelets 342 140 - 440 10*3/uL 07/14/2024 9:47 AM EDT [facility] MPV 10.8 9.4 - 12.3 fL 07/14/2024 9:47 AM EDT [facility] Neutrophil % 72.9 50.0 - 75.0 % 07/14/2024 9:47 AM EDT [facility] Immature Grans % 0.2 0.0 - 0.9 % 07/14/2024 9:47 AM EDT [facility] Lymphocyte % 20.0 20.0 - 44.0 % 07/14/2024 9:47 AM EDT [facility] Monocyte % 5.5 0.0 - 14.0 % 07/14/2024 9:47 AM EDT [facility] Eosinophil % 0.3 0.0 - 5.0 % 07/14/2024 9:47 AM EDT [facility] Basophil % 1.1 0.0 - 2.0 % 07/14/2024 9:47 AM EDT [facility] Neutrophil # 6.64 1.80 - 7.70 10*3/uL 07/14/2024 9:47 AM EDT [facility] Immature Grans # <0.03 0.00 - 0.03 10*3/uL 07/14/2024 9:47 AM EDT [facility] Lymphocyte # 1.80 1.00 - 4.75 10*3/uL 07/14/2024 9:47 AM EDT [facility] Monocyte # 0.50 0.00 - 0.60 10*3/uL 07/14/2024 9:47 AM EDT [facility] Eosinophil # <0.03 0.00 - 0.80 10*3/uL 07/14/2024 9:47 AM EDT [facility] Basophil # 0.10 0.00 - 0.20 10*3/uL 07/14/2024 9:47 AM EDT [facility] nRBC % 0.0 0 - 0 /100 WBCs 07/14/2024 9:47 AM EDT [facility] nRBC # <0.01 0.00 - 0.13 10*3/uL 07/14/2024 9:47 AM EDT [facility] Blood Structure of peripheral vein / Unknown Venipuncture / Unknown 07/14/2024 9:41 AM EDT 07/14/2024 9:45 AM EDT Chris Steele MD LAB BLOOD ORDERABLES Final Res ult Performing Organization Address [facility]/ZIP Co de Phone Number [facility] [address] [place] [address], [place] [phone] * Lipase (07/14/2024 9:41 AM EDT) Only the most recent of2 resultswithin the time period is included. Lipase 27 13 - 60 U/L 07/14/2024 11:03 AM EDT [facility] Blood Structure of peripheral vein / Unknown Venipuncture / Unknown 07/14/2024 9:41 AM EDT 07/14/2024 9:45 AM EDT Chris Steele MD LAB BLOOD ORDERABLES Final Res ult Performing Organization Address [facility]/ZIP Co de Phone Number [facility] [address] [place] [address], [place] [phone] * (ABNORMAL) Comprehensive Metabolic Panel (07/14/2024 9:41 AM EDT) NA 137 136 - 145 mmol/L 07/14/2024 11:03 AM EDT [facility] K 07/14/2024 11:03 AM EDT [facility] Comment:TNP - Sample Hemolyz ed Cl 106 98 - 109 mmol/L 07/14/2024 11:03 AM EDT [facility] CO2 17(L) 22 - 32 mmol/L 07/14/2024 11:03 AM T [facility] Anion Gap 07/14/2024 11:03 AM T [facility] Comment:TNP - Sample Hemolyz ed Glucose 119(H) 60 - 99 mg/dL 07/14/2024 11:03 AM T [facility] Creatinine 0.58 0.50 - 1.12 mg/dL 07/14/2024 11:03 AM EDT [facility] Calcium 9.8 8.4 - 10.4 mg/dL 07/14/2024 11:03 AM T [facility] Total Protein 7.8 6.6 - 8.7 g/dL 07/14/2024 11:03 AM [facility] Albumin 4.2 3.5 - 5.0 g/dL 07/14/2024 11:03 AM [facility] Bilirubin, Total 0.4 0.2 - 1.2 mg/dL 07/14/2024 11:03 AM EDT [facility] Alkaline Phosphatase 77 40 - 129 U/L 07/14/2024 11:03 AM [facility] AST 07/14/2024 11:03 AM [facility] Comment:TNP - Sample Hemolyz ed ALT 07/14/2024 11:03 AM [facility] Comment:TNP - Sample Hemolyz ed BUN 7 6 - 20 mg/dL 07/14/2024 11:03 AM EDT [facility] eGFR >90 >=60 mL/min/1. 73m2 07/14/2024 11:03 AM [facility] Comment:The estimated glomer ular filtration rate (eGFR) is calculated using a new formula developed by the NKF-ASN task force to eliminate race-based correction factors. The new formula uses serum/plasma creatinine, age, and gender to determine eGFR. A value below 60mls/min might indicate kidney disease and will be flagged. For additional information, see Laverne et al, Am J Kidney Dis. 2021;79(2):268- 288, A Unifying Approach for GFR estimation: Recommendations of the NKF-ASN Task Force on Reassessing the Inclusion of Race in Diagnosing Kidney Disease . Globulin, Total 3.6 2.1 - 4.2 g/dL 07/14/2024 11:03 AM EDT [facility] A/G Ratio 1.2(L) 1.5 - 3.0 07/14/2024 11:03 AM EDT [facility] Blood Structure of peripheral vein / Unknown Venipuncture / Unknown 07/14/2024 9:41 AM EDT 07/14/2024 9:45 AM EDT Chris Steele MD LAB BLOOD ORDERABLES Final Res ult Performing Organization Address [facility] Co de Phone Number [address] [address], [place] [phone] * (ABNORMAL) Smear Review (05/17/2024 1:09 PM EST) Platelet Estimate Adequate Adequate 05/17/2024 1:49 PM EST [facility] RBC Morphology Present(A) Normal, No clinically significant RBC morphology present (ICSH guidelines, 2015). 05/17/2024 1:49 PM EST [facility] Hypochromia 1+(A) Not Present 05/17/2024 1:49 PM EST [facility] Macrocytes 1+(A) Not Present 05/17/2024 1:49 PM EST [facility] Target Cells 1+(A) Not Present 05/17/2024 1:49 PM EST [facility] Blood Structure of peripheral vein / Unknown Venipuncture / Unknown 05/17/2024 1:09 PM EST 05/17/2024 1:16 PM EST Luis Burr LAB BLOOD ORDERABLES Final Resu lt Performing Organization Address [facility] Co de Phone Number [address] [address], * Celiac Diagnostic Panel w/Gliadin, All Ages (Includes: IgA, tTG IgA/IgG and Giadin IgA/IgG) (05/17/2024 1:09 PM EST) Tissue Transglutaminase Ab, IgG <1.0 U/mL 05/20/2024 4:24 PM EST [facility] Comment: Value ?Interpretation ----- ? <15.0 ?Antibody not detected > or = 15.0 ?Antibody detected Tissue Transglutaminase Ab, IgA <1.0 U/mL 05/20/2024 4:24 PM EST [facility] Comment: Value ?Interpretation ----- ? <15.0 ?Antibody not detected > or = 15.0 ?Antibody detected Gliadin Ab IgA <1.0 U/mL 05/20/2024 4:24 PM EST [facility] Comment: Value ?Interpretation ----- ? <15.0 ?Antibody not detected > or = 15.0 ?Antibody detected Gliadin Ab IgG <1.0 U/mL 05/20/2024 4:24 PM EST [facility] Comment: Value ?Interpretation ----- ? <15.0 ?Antibody not detected > or = 15.0 ?Antibody detected Immunoglobulin A 262 47 - 310 mg/dL 05/20/2024 4:24 PM EST [facility] Blood Structure of peripheral vein / Unknown Venipuncture / Unknown 05/17/2024 1:09 PM EST 05/17/2024 1:16 PM EST Narrative BIRGIT HALE - 05/20/2024 4:24 PM EST [facility] BLOOD ORDERABLES Final Resu lt Performing Organization Address [facility] de Phone Number BIRGIT HALE [address], [place] [address], * Tissue Transglutaminase (tTG) Antibody, IgA (05/17/2024 1:09 PM EST) Pathologist [facility] Tissue Transglutaminase Ab, IgA <1.0 U/mL 05/19/2024 9:35 PM EST [facility] Comment: Value ?Interpretation ----- ? <15.0 ?Antibody not detected > or = 15.0 ?Antibody detected Blood Structure of peripheral vein / Unknown Venipuncture / Unknown 05/17/2024 1:09 PM EST 05/17/2024 1:16 PM EST Narrative BIRGIT HALE - 05/19/2024 9:35 PM EST [facility] Received Date:[id number] [facility] LAB BLOOD ORDERABLES Final Resu lt Performing Organization Address [facility] de Phone Number BIRGIT HALE [address], [facility] [place] [address], [place] [phone] * Immunoglobulins Panel (IgG, IgA, IgM) (05/17/2024 1:09 PM EST) Immunoglobulin A 258 47 - 310 mg/dL 05/19/2024 6:54 PM EST [facility] [place] IgG, Serum 1192 600 - 1640 mg/dL 05/19/2024 6:54 PM EST [facility] Immunoglobulin M 95 50 - 300 mg/dL 05/19/2024 6:54 PM EST BIRGIT HALE Blood Structure of peripheral vein / Unknown Venipuncture / Unknown 05/17/2024 1:09 PM EST 05/17/2024 1:16 PM EST Jorge HALE - 05/19/2024 6:54 PM EST [facility] Received Date: [facility] LAB BLOOD ORDERABLES Final Resu lt BIRGIT HALE [address] [place] [address] [address] Floor, [place] [address], * (ABNORMAL) Hepatic Function Panel (05/17/2024 1:09 PM EST) Total Protein 7.0 6.6 - 8.7 g/dL 05/17/2024 1:50 PM EST [facility] Albumin 4.0 3.5 - 5.0 g/dL 05/17/2024 1:50 PM EST [facility] Globulin, Total 3.0 2.1 - 4.2 g/dL 05/17/2024 1:50 PM EST [facility] Bilirubin, Total 0.2 0.2 - 1.2 mg/dL 05/17/2024 1:50 PM EST [facility] Bilirubin, Direct 0.1 <=0.3 mg/dL 05/17/2024 1:50 PM EST [facility] Alkaline Phosphatase 81 40 - 129 U/L 05/17/2024 1:50 PM EST [facility] AST 18 0 - 33 U/L 05/17/2024 1:50 PM EST [facility] ALT 10 <=33 U/L 05/17/2024 1:50 PM EST [facility] Bilirubin, Indirect 0.10 <=0.70 mg/dL 05/17/2024 1:50 PM EST [facility] A/G Ratio 1.3(L) 1.5 - 3.0 05/17/2024 1:50 PM EST [facility] Blood Structure of peripheral vein / Unknown Venipuncture / Unknown 05/17/2024 1:09 PM EST 05/17/2024 1:16 PM EST Luis Mariaord LAB BLOOD ORDERABLES Final Resu lt [facility] [address] [facility] [place] [address], from Last 3 Months Insurance [employer] Advance Directives * Full Code (Latest Code Status on File) Date Activated Date Inactivated Comments 01/23/2024 8:32 AM 01/23/2024 1:48 PM Care Teams Commercial Door Installer Relationship Specialty Start Date End Date Jannet Roger [address] [place] [phone] PCP - General 12/16/23
--- OUTSIDE RECORDS SUMMARY | 2024-08-15 15:29 | XMS_ITS | Encounter Summary ---
Author Organization [facility] Address [address] [place] [address] Care Team Providers Care Furniture Cleaner Name Role Phone Jannet Roger Primary Care Provider [phone] Encounter Details Date Type Department Care Team (Late st Contact Info) Description 05/19/2024 myChart Message Initial Department [address] [place] [phone] Mychart, Generic Provider [address] [place] [address] Questionnaire Submission Social History Tobacco Use Types Packs/Day Years [...] Orientation Straight 01/16/2024 8: 48 AM EDT documented as of this encounter Plan of Treatment Upcoming Encounters Date Type Department Care Team (Late st Contact Info) Description 08/26/2024 Orders Only [facility] @ [address] [address] Luis Burr [address] [place] [address] [address] [place] [phone] Generalized abdominal pain 08/26/2024 1:15 PM EDT Appointment [facility] @ [address] [address] 04/08/2025 10:15 AM EST Office Visit [facility] Ophthalmology [address] [place] [address] Jessica Cardozo MD [address] [place] [address] documented as of this encounter Visit Diagnoses Not on filedocumented in this encounter Additional Health Concerns Infection Onset Date Last Indicated Resolved Time R/O Respiratory Virus Infection 07/14/2024 07/14/2024 10:53 AM EDT R/O Influenza 07/14/2024 07/14/2024 07/14/2024 10: 53 AM EDT COVID-19 - Suspected infection 07/14/2024 07/14/2024 07/14/2024 10:53 AM EDT R/O C.diff 07/14/2024 07/14/2024 07/14/2024 2:21 PM EDT documented as of this encounter Care Teams Furniture Cleaner Relationship Specialty Start Date End Date Jannet Roger [address] [place] [phone] PCP - General 12/16/23 documented as of this encounter
--- OUTSIDE RECORDS SUMMARY | 2024-08-15 15:30 | XMS_ITS | Data Portability ---
Author Organization [place] - [facility] Address [address] [place] [id number] Assessment Encounter Date Assessment Date Assessment LastModified by Organization Details LastModified Time 04/14/2024 04/14/2024 bronchitis gets it every fall and again in may no se from oxycodone; working on her pain o; Today's visit is conducted utilizing synchronous audio and video communication between providers patient via a HIPAA compliant portal; phone. Patient verbally consents to this virtual visit and understands it will be billed to insurance the same as if they are in the office... sounds well on phone ap; see below; meds refilled bronchitis; tx sx and discussed fluids and rest call worse or cont. will inc the oxycodone to 5 times a day as needed; try to keep to qid and use only if over does the day [email or web address] Not available 04/14/2024 11:30:20 05/15/2024 05/15/2024 no constipation sleeping well meds working ok helps daughter with kids. gastro reviewing colonoscopy and ugi cutting back on soda, and cigarettes; 20 py hx; PE Today's visit is conducted utilizing synchronous audio and video communication between providers patient via a HIPAA compliant portal; phone. Patient verbally consents to this virtual visit and understands it will be billed to insurance the same as if they are in the office... ABNL: no wheeze but occasional cough/clearing throat no sob sounds well and cheerful on the phone AP tob ; discussed quitting fibromyalgia controlled with lyrica and oxycodone predm; due for labs hyperchol again due for labs and fu disc ussed new provider closer; she hopes to after done with disability appllication f/u and prn min with complicated diagnosis(es) taking >1/2 time in compensatory complex care, admitting counselor, evaluation, education, negotiation, and coordination of treatment plan with pt present All care was consented with risks/benefits and all standard medically indicated history, exam, assessment, plan and education explained with all questions answered, pt expressing understanding and appearing satisfied and stable upon departure with care replacing an Urgent Care/ER visit today [email or web address] Not available 05/15/2024 10:51:39 06/03/2024 06/03/2024 no constipation sleeping well meds working ok helps daughter with kids. feeling well, no flu at this time friend is 79 and going to [place] to visit and masks up gastro reviewing colonoscopy and ugi down to [place] kg qod and tob still smoking 0-3. caring for [facility] m nl speech, psy culturally congruent socially appropriate n-cog wnl resp nonlabored Today's visit is conducted utilizing synchronous audio and video communication between providers patient via a HIPAA compliant portal; phone. Patient verbally consents to this virtual visit and understands it will be billed to insurance the same as if they are in the office... ABNL: AP tob ; discussed quitting 0-3 per day; depending on stress fibromyalgia controlled with lyrica and oxycodone predm; due for labs hyperchol 15 min with complicated diagnosis(es) taking >1/2 time in compensatory complex care, admitting counselor, evaluation, education, negotiation, and coordination of treatment plan with pt present All care was consented with risks/benefits and all standard medically indicated history, exam, assessment, plan and education explained with all questions answered, pt expressing understanding and appearing satisfied and stable upon departure with care replacing an Urgent Care/ER visit today [email or web address] Not available 06/03/2024 12:05:20 07/03/2024 07/03/2024 stomach issues lately; treating with augmentin by gastro. has fu in july. getting lab work meds working ok helps daughter with kids. gastro reviewing colonoscopy and ugi tob still smoking 0-3. caring for [facility] nl speech, psy culturally congruent socially appropriate n-cog wnl resp nonlabored Today's visit is conducted utilizing synchronous audio and video communication between providers patient via a HIPAA compliant portal; phone. Patient verbally consents to this virtual visit and understands it will be billed to insurance the same as if they are in the office... ABNL: AP tob ; discussed quitting 0-3 per day; depending on stress fibromyalgia controlled with lyrica and oxycodone predm; due for labs hyperchol 15 min with complicated diagnosis(es) taking >1/2 time in compensatory complex care, admitting counselor, evaluation, education, negotiation, and coordination of treatment plan with pt present All care was consented with risks/benefits and all standard medically indicated history, exam, assessment, plan and education explained with all questions answered, pt expressing understanding and appearing satisfied and stable upon departure with care replacing an Urgent Care/ER visit today [email or web address] Not available 07/03/2024 11:25:22 07/21/2024 07/21/2024 has .7 cm spot on pancreas; getting mri and getting colonoscopy on dicyclomine 20 mg tid found spot with abd pain and seen in er; ct done there. still having pain and cramping and diarrhea has fu in july. getting lab work meds working ok helps daughter with kids. tob still smoking 0-3. nl speech, psy culturally congruent socially appropriate n-cog wnl resp nonlabored Today's visit is conducted utilizing synchronous audio and video communication between providers patient via a HIPAA compliant portal; phone. Patient verbally consents to this virtual visit and understands it will be billed to insurance the same as if they are in the office... ABNL: AP tob ; discussed quitting 0-3 per day; depending on stress fibromyalgia controlled with lyrica and oxycodone predm; due for labs hyperchol 15 min with complicated diagnosis(es) taking >1/2 time in compensatory complex care, admitting counselor, evaluation, education, negotiation, and coordination of treatment plan with pt present All care was consented with risks/benefits and all standard medically indicated history, exam, assessment, plan and education explained with all questions answered, pt expressing understanding and appearing satisfied and stable upon departure with care replacing an Urgent Care/ER visit today [email or web address] Not available 07/21/2024 09:24:09 Plan of Treatment Reminders Order Date Submit Date Provider Last Modified By Organization Details Last Modified Time Details Appointments Remote - Phone 2024 10:40A Jhoana Roger NP Not available Not available Not available Lab lipid panel, serum 2024 025 [facility] Lab Order, [address] [place] [address], [id number], 08/14/2024 09:36:50 CMP, serum or plasma 2024 025 [facility] Order, [address] [place] [address], [id number], 08/14/2024 09:36:50 HbA1c (hemoglob in A1c), blood 2024 025 [facility] Lab Order, [address] [place] [address], [id number], 08/14/2024 09:36:50 CBC w/ auto diff 2024 025 [facility] Lab Order, [address] [place] [address], [id number], 08/14/2024 09:36:50 HbA1c (hemoglob in A1c), blood 2024 025 [facility], [address] [place] [address], [id number], 06/13/2024 12:21:28 CMP, serum or plasma 2024 025 [facility], [address] [place] [address], [id number], 06/13/2024 12:21:28 lipid panel, serum 2024 025 [facility], [address] [place] [address], [id number], 06/13/2024 12:21:28 Referral None recorded. Procedures None recorded. Surgeries None recorded. Imaging LDCT, chest, for lung cancer screening - 20 py hx tob and still smokes 2024 025 [email or web address] [facility] (Radiology), [address] [place] [address], [id number], 07/03/2024 08:57:38 LDCT, chest, for lung cancer screening - 20 py hx tob and still smokes 2024 025 [email or web address] [facility] [address] [place], [address], 07/03/2024 08:56:36 Medication Orders oxycodone -acetamin ophen 10 mg-325 mg tablet 2024 025 [facility], [address] [place] [address], [id number], 07/21/2024 09:22:15 Adderall 15 mg tablet 2024 025 [facility], [address] [place] [address], [id number], 07/21/2024 09:22:17 oxycodone -acetamin ophen 10 mg-325 mg tablet 2024 025 [facility], [address] [place] [address], [id number], 07/17/2024 11:51:06 Adderall 15 mg tablet 2024 025 [facility], [address] [place] [address], [id number], 07/03/2024 11:27:08 oxycodone -acetamin ophen 10 mg-325 mg tablet 2024 025 [facility], [address] [place] [address], [id number], 07/17/2024 11:51:06 Adderall 15 mg tablet 2024 025 [facility], [address] [place] [address], [id number], 06/03/2024 11:42:37 oxycodone -acetamin ophen 10 mg-325 mg tablet 2024 025 [email or web address] [facility], [address] [place] [address], [address], 05/20/2024 08:23:19 Adderall 15 mg tablet 2024 025 [facility], [address] [place] [address], [address], 05/15/2024 12:23:00 oxycodone -acetamin ophen 10 mg-325 mg tablet 2023 024 [facility] [address] [place] [address], [id number], 07/17/2024 11:51:06 azithromy deepali 250 mg tablet 2023 025 [facility], [address] [place] [address], [id number], 07/03/2024 11:22:54 prednison e 50 mg tablet 2023 024 [facility], [address] [place] [address], [id number], 04/14/2024 11:28:56 benzonata te 100 mg capsule 2023 024 [facility], [address] [place] [address], [address], 04/14/2024 11:28:54 Adderall 15 mg tablet 2023 024 [facility], [address] [place] [address], [id number], 04/14/2024 11:28:57 Patient TargetsNo targets recorded. Patient Instructions Encounter Date Encounter Id Patient Instructions Last Modified By Organization Details Last Modified Time 04/14/2024 [id number] cough: care instructions [email or web address] Not available 04/14/2024 11:28:46 05/15/2024 [id number] deciding about using medicines to quit smoking [email or web address] Not available 05/15/2024 10:44:53 Quitting Tobacco : Care Instructions [email or web address] Not available 05/15/2024 10:44:53 06/03/2024 [id number] deciding about using medicines to quit smoking [email or web address] Not available 06/03/2024 11:42:29 Quitting Tobacco : Care Instructions [email or web address] Not available 06/03/2024 11:42:29 Reason for Referral None Reported. Problems Name Problem SNOMED Code Status Onset Date Resolution Date Notes Provider Name and Address Organization Details Recorded Time Anemia 559674054 Completed 201702/26/2018 Darwin Fox MD [address] [place] [address], [phone] , [facility] 8 09:39:36 Chronic back pain 708584075 Active 2017 presumed costocho ndritis; stress test is pending Not Available [facility] 0 04:43:10 Asthma 647872718 Active 2017 Not Available [facility] 0 04:43:10 Divertic ulitis 095351819 Active 2017 Not Available [facility] 0 04:43:10 Plantar fasciiti s 095570739 Active 2017 Not Available [facility] 0 04:43:10 Erosive gastriti s 59240315108 49352 Active 2018 Not Available [facility] 0 04:43:10 Divertic ulosis of intestin e Completed 201810/29/2018 Darwin Fox MD [address] [place] [address], [phone] , [facility] 9 12:23:03 Chest pain 44696267 Active 2018 Not Available [facility] 0 04:43:10 Anxiety 30973086 Active 2018 Not Available [facility] 0 04:43:10 Joint pain 26233459 Active 2018 Not Available [facility] 0 04:43:10 Fibromya lgia 798537530 Active 2019 Not Available [facility] 0 04:43:10 Perioral dermatit is 800673609 Active 2020 STACEY CARROLL, [address], [address] , [facility] 1 15:39:08 Depressi ve disorder 56431125 Active 2020 STACEY CARROLL, [address], [address] , [facility] 1 15:46:46 Tick bite 06814160 Active 2020 STACEY CARROLL [address], [address] , [facility] 1 21:49:14 Nicotine dependen ce 38418294 Active 2022 Jannet Roger NP [address] [place] [address], [address] , [facility] 3 09:02:16 Vitamin B deficien cy 99564982 Active 2022 Jannet Roger NP [address] [place] [address], [address] , [facility] 3 11:10:17 Hypercho lesterol emia 20021086 Active 2022 Jannet Roger NP [address] [place] [address], [address] , [facility] 3 08:52:00 Type 2 diabetes mellitus 43402357 Active 2022 Jannet Roger NP [address] [place] [address], [address] , [facility] 3 09:33:23 Chronic pain 67261051 Active 2022 Jannet Roger NP [address] [place] [address], [address] , [facility] 3 10:23:57 Abdomina l pain 72568045 Active 2022 Jannet Roger NP [address] [place] [address], [address] , [facility] 3 11:21:12 Prediabe shannan 151257312 Active 2023 Jannet Roger NP [address] [place] [address], [address] , [facility] 4 11:18:37 Gastroes ophageal reflux disease 735066362 Active 2023 Jannet Roger NP [address] [place] [address], [address] , [facility] 4 11:21:07 Insomnia 763074931 Active 2023 Jannet Roger NP [address] [place] [address], [address] , [facility] 4 11:33:22 Child attentio n deficit disorder 669164202 Active 2023 Jannet Roger NP [address] [place] [address], [address] , [facility] 4 11:21:55 Backache 349545845 Active 2023 Jannet Roger NP [address] [place] [address], [address] , [facility] 4 10:43:12 Dyslipid emia 740257048 Active 2023 Jannet Roger NP [address] [place] [address], [address] , [facility] 4 10:48:33 Hyperkal emia 90902266 Active 2023 Jannet Roger NP [address] [place] [address], [address] , [facility] 4 10:55:28 Serum vitamin B12 below referenc e range 069059883 Active 2023 Jannet Roger NP [address] [place] [address], [address] , [facility] 4 12:05:16 Neuropat hy 711052362 Active 2023 Jannet Roger NP [address] [place] [address], [address] , [facility] 4 10:11:02 Herpes simplex 66297147 Active 2023 Jannet Roger NP [address] [place] [address], [address] , [facility] 4 11:48:28 Tinea pedis 9383613 Active 2023 Jannet Roger NP [address] [place] [address], [address] , [facility] 4 11:52:35 Conjunct ivitis 1972995 Active 2023 Jannet Roger NP [address] [place] [address], [address] , [facility] 4 09:38:32 Cough 69156971 Active 2023 Jannet Roger NP [address] [place] [address], [address] , [facility] 4 09:41:10 Bronchit is 97521602 Active 2023 Jannet Roger NP [address] [place] [address], [address] , [facility] 4 11:21:18 Tobacco dependen ce syndrome 98610959 Active 2024 Jannet Roger NP [address] [place] [address], [address] , [facility] 5 10:44:30 Injury of pancreas 60871569 Active 2024 Jannet Roger NP [address] [place] [address], [address] , [facility] 5 09:20:33 Cyst of pancreas 67571045 Active 2024 Jannet Roger NP [address] [place] [address], [address] , [facility] 5 09:24:33 Notes:pain management contra ct completed 05/23/2022. wl Problem Notes None recorded. Procedures Surgical History Date Name Laterality Status Provider Name and Address Organization Details Recorded Time 5 Hysterectomy completed Darwin Fox MD [address] [place] [address], [phone], [facility] 02/26/2018 09:48:48 Imaging Results None recorded. Procedure Notes None recorded. Medical Equipment None Reported. Allergies Allergen ID Allergen Name Allergen Category Reaction Reaction Severity Criticality Documentation Date Start Date Code Code System Note Provider Name and Address Organization Details Recorded Time 74841 baclofen medicatio n other Not available Not available 05/17/20212023 1292 Julia Fox MD [address] [place] [address], [address], [facility] 5 11:51:02 58301 naproxen medicatio n other swelling Not available Not available Not available 07/17/20242012 7258 Julia Fox MD [address] [place] [address], [address], [facility] 5 11:51:02 60210 cephalexi n medicatio n anaphylax is hives swelling Not available Not available Not available Not available 07/17/20242012 2231 Julia Fox MD [address] [place] [address], [address], [facility] 5 11:51:02 09411 tramadol medicatio n other Not available Not available 07/17/20242023 34319 Julia Fox MD [address] [place] [address], [address], [facility] 5 11:51:02 74097 bupropion Not available nausea Not available Not available 07/17/20242021 48396 Julia Fox MD [address] [place] [address], [address], [facility] 5 11:51:02 8830 Keflex medicatio n anaphylax is severe Not available 02/26/201804641 7 RxNorm Darwin Fox MD [address] [place] [address], [address], [facility] 8 09:52:22 8831 gabapenti n medicatio n diarrhea nausea Not available Not available Not available 02/26/20182019 33892 RxNorm Darwin Fox MD [address] [place] [address], [address], [facility] 5 11:51:02 8832 Substance with sulfonami de structure and antibacte rial mechanism of action (substanc e) medicatio n nausea Not available Not available 02/26/20182012 18461 8003 SNOMED Darwin Fox MD [address] [place] [address], [address], [facility] 5 11:51:02 8833 Naprosyn medicatio n other severe Not available 02/26/2018 2 RxNorm Darwin Fox MD [address] [place] [address], [address], [facility] 8 09:54:04 8834 amitripty line medicatio n dizziness other Not available Not available Not available 02/26/20182012 704 RxNorm Other react ions and sever ities : 'Unkn own'. Darwin Fox MD [address] [place] [address], [address], [facility] 5 11:51:02 9214 Non-stero idal anti-infl ammatory agent (product) medicatio n anaphylax is swelling Not available Not available Not available 11/11/20182019 79472 005 ROGE Fox MD [address] [place] [address], [address], [facility] 5 11:51:02 Medications Name Sig Start Date Stop Date Status Note LastModified by Organization Details LastModified Time carisopro dol 350 mg tablet TAKE 1 TABLET BY MOUTH TWICE DAILY active Not Available Not Available No t Available cyclobenz aprine 10 mg tablet take 1 tablet by mouth three times a day if needed for muscle spasm 01/16 completed Not Available Not Available Not Available amoxicill in 500 mg capsule take 1 capsule by mouth three times a day 01/01 completed Not Available Not Available Not Available clotrimaz ole 10 mg georges dissolve 1 georges by mouth two to three times a day 12/29 completed Not Available Not Available Not Available terbinafi ne HCl 1 % topical cream APPLY TO THE AFFECTED AND SURROUND ING AREAS OF SKIN BY TOPICAL ROUTE ONCE DAILY 2023 active Not Available Not Available Not Avai lable Pain Reliever Extra Strength (acetamin ophen) 500 mg tablet take 1 to 2 tablets by mouth every 4 hours if needed for pain 12/29 completed Not Available Not Available Not Available acetamino phen 325 mg tablet take 2 tablets by mouth every 6 hours if needed 11/04 completed Not Available Not Available Not Available prednison e 10 mg tablet TAKE 3 TABLETS BY MOUTH ONCE DAILY FOR 3 DAYS, THEN 2 TAB DAILY FOR 3 DAYS, 1 TAB DAILY FOR 3 DAYS active Not Available Not Available No t Available Delsym 12 hour 30 mg/5 mL oral suspensio n,extende d release Take 5 mL every day by oral route. 12/29 completed Not Available Not Available Not Available nicotine 14 mg/24 hr daily transderm al patch APPLY 1 PATCH TO SKIN daily as directed 01/16 completed Not Available Not Available Not Available Adderall 15 mg tablet Take 1 tablet every day by oral route. 2024 active Not Available Not Available Not Avai lable cetirizin e 10 mg tablet 10 mg by oral route. active Not Available Not Available No t Available atorvasta tin 10 mg tablet Take 1 tablet every day by oral route. 02/22 completed Not Available Not Available Not Available azithromy deepali 250 mg tablet TAKE 2 TABLETS (500 MG) BY ORAL ROUTE ONCE DAILY FOR 1 DAY THEN 1 TABLET (250 MG) BY ORAL ROUTE ONCE DAILY FOR 4 DAYS 07/03 completed Not Available Not Available Not Available pravastat in 40 mg tablet 40 mg by oral route. active Not Available Not Available No t Available ondansetr on HCl 8 mg tablet take 1 tablet by mouth every 8 hours if needed for nausea 10/29 completed Not Available Not Available Not Available sucralfat e 1 gram tablet take 1 tablet by mouth four times a day 11/04 completed Not Available Not Available Not Available prednison e 20 mg tablet take 1 tablet by mouth once daily 09/21 completed Not Available Not Available Not Available dextroamp hetamine- amphetami ne 10 mg tablet 10 mg by oral route. active Not Available Not Available No t Available methylpre dnisolone 4 mg tablet START SUNDAY TAKE DIRECTED PER SHEET 10/29 completed Not Available Not Available Not Available cyanocoba kirk (vit B-12) 1,000 mcg tablet take 1 tablet by mouth once daily 02/22 completed Not Available Not Available Not Available valacyclo vir 500 mg tablet 1 {tbl} by oral route. active Not Available Not Available No t Available omeprazol e 40 mg capsule,d elayed release TAKE 1 CAPSULE BY MOUTH ONCE DAILY active Not Available Not Available No t Available meloxicam 7.5 mg tablet take 1 tablet by mouth once daily 01/16 completed Not Available Not Available Not Available oxycodone -acetamin ophen 5 mg-325 mg tablet take 1 tablet by mouth every 6 hours if needed for pain 10/19 completed Not Available Not Available Not Available omeprazol e 10 mg capsule,d elayed release take 2 capsules by mouth once daily 10/29 completed Not Available Not Available Not Available lorazepam 0.5 mg tablet take 1 tablet by mouth three times a day if needed 11/12 completed Not Available Not Available Not Available pravastat in 10 mg tablet TAKE 1 TABLET BY MOUTH ONCE DAILY 11/04 completed Not Available Not Available Not Available cyanocoba kirk (vit B-12) 500 mcg tablet 500 ugs by oral route. active Not Available Not Available No t Available oxycodone -acetamin ophen 10 mg-325 mg tablet TAKE 1 TABLET BY MOUTH EVERY 4 TO 6 HOURS active Not Available Not Available No t Available dicyclomi ne 20 mg tablet TAKE 1 TABLET BY MOUTH THREE TIMES DAILY active Not Available Not Available No t Available baclofen 10 mg tablet take 1 tablet by mouth four times a day 07/25 completed sleep paralysi s Not Available Not Available Not Available benzonata te 100 mg capsule 1-2 capsules tid prn cough 2023 active Not Available Not Available Not Avai lable erythromy deepali 5 mg/gram (0.5 %) eye ointment APPLY 1 CM RIBBON INTO THE LOWER CONJUNCT IVAL SAC(S) IN THE AFFECTED EYE(S) BY OPHTHALM IC ROUTE 3 TIMES PER DAY active Not Available Not Available No t Available esomepraz ole magnesium 40 mg capsule,d elayed release take 1 capsule by mouth once daily for 14 days active Not Available Not Available No t Available prednison e 50 mg tablet take 1 tablet by mouth once daily active Not Available Not Available No t Available lidocaine 5 % topical patch apply 1 patch TO THE AFFECTED AREA DAILY. LEAVE ON FOR 12 HOURS AND THEN OFF FOR 12 HOURS. 11/04 completed Not Available Not Available Not Available oxycodone 5 mg capsule take 1 capsule every 6 hours if needed for pain 08/15 completed Not Available Not Available Not Available orphenadr ine citrate ER 100 mg tablet,ex tended release take 1 tablet by mouth twice a day 01/16 completed Not Available Not Available Not Available nicotine 21 mg/24 hr daily transderm al patch apply 1 patch topicall y once daily 01/16 completed Not Available Not Available Not Available betametha sone dipropion ate 0.05 % topical cream apply topicall y to affected area once daily 02/22 completed Not Available Not Available Not Available omeprazol e 20 mg capsule,d elayed release take 1 capsule by mouth once daily 11/04 completed Not Available Not Available Not Available Pred Forte 1 % eye drops,ming pension 1 [drp] by ophthalm ic route. active Not Available Not Available No t Available hydroxyzi ne HCl 25 mg tablet Take 1 tablet 3 times a day by oral route as needed. 03/07 completed Not Available Not Available Not Available lorazepam 1 mg tablet take 1 tablet by mouth at bedtime BEFORE SURGERY, AND 1 TO 2 TABLETS 1 HOUR BEFORE SURGERY 11/12 completed Not Available Not Available Not Available levofloxa deepali 500 mg tablet take 1 tablet by mouth every 24 hours 11/12 completed Not Available Not Available Not Available ondansetr on 4 mg disintegr ating tablet 11/04 completed Not Available Not Available Not Available cholecalc iferol (vitamin D3) 125 mcg (5,000 unit) capsule take 1 capsule by mouth once daily 12/29 completed Not Available Not Available Not Available doxycycli ne hyclate 100 mg tablet take 1 tablet by mouth twice a day 03/07 completed Not Available Not Available Not Available dextroamp hetamine- amphetami ne 5 mg tablet TAKE 1 TABLET BY MOUTH ONCE DAILY FOR 30 DAYS 12/02 completed Not Available Not Available Not Available amoxicill in 875 mg-potass ium clavulana te 125 mg tablet active Not Available Not Available Not Available nicotine 7 mg/24 hr daily transderm al patch Apply 1 patch every day by transder mal route. 01/16 completed Not Available Not Available Not Available oxycodone 5 mg tablet TAKE 1 TABLET BY MOUTH EVERY 6 HOURS NEEDED FOR PAIN 11/12 completed Not Available Not Available Not Available clindamyc in 1 % lotion APPLY A THIN LAYER TO THE AFFECTED AREA(S) BY TOPICAL ROUTE 2 TIMES PER DAY 02/22 completed Not Available Not Available Not Available escitalop britany 10 mg tablet take 1 tablet by mouth once daily 11/12 completed Not Available Not Available Not Available escitalop britany 20 mg tablet TAKE 1 TABLET BY MOUTH EVERY DAY 01/10 completed Not Available Not Available Not Available Vitamin D3 25 mcg (1,000 unit) capsule take 2 capsules by mouth every morning 05/23 completed Not Available Not Available Not Available nicotine (polacril ex) 2 mg buccal lozenge TAKE 1 LOZENGE BY MOUTH EVERY 8 HOURS BY MOUTH active Not Available Not Available No t Available omeprazol e magnesium 20 mg tablet,de layed release 40 mg by oral route. active Not Available Not Available No t Available escitalop britany 5 mg tablet Take 1 tablet every day by oral route. 01/10 completed Not Available Not Available Not Available duloxetin e 20 mg capsule,d elayed release TAKE 1 CAPSULE BY MOUTH TWICE DAILY active Not Available Not Available No t Available duloxetin e 30 mg capsule,d elayed release 30 mg by oral route. active Not Available Not Available No t Available duloxetin e 60 mg capsule,d elayed release take 1 capsule by mouth at bedtime 03/13 completed Not Available Not Available Not Available pregabali n 50 mg capsule TAKE 1 CAPSULE BY MOUTH TWICE DAILY active Not Available Not Available No t Available Lyrica 25 mg capsule Take 1 capsule 3 times a day by oral route. 2023 active Not Available Not Available Not Avai lable Rozerem 8 mg tablet 1 {tbl} by oral route. active Not Available Not Available No t Available chlorhexi dine gluconate 0.12 % mouthwash TAKE 1 CAPFUL SWISH AND HOLD FOR 2 MINUTES THEN SPIT three times a day 12/29 completed Not Available Not Available Not Available varenicli ne tartrate 1 mg tablet take 1 tablet by mouth twice a day 11/04 completed Not Available Not Available Not Available varenicli ne tartrate 0.5 mg tablet TAKE 1 TABLET BY MOUTH ONCE DAILY ON DAYS 1-3. THEN, TAKE 1 TABLE... (REFER TO PRESCRIP TION NOTES). 02/22 completed Not Available Not Available Not Available ProAir HFA 90 mcg/actua tion aerosol inhaler 2 {puff}s by inhalati on route. active Not Available Not Available No t Available meloxicam 7.5 mg/5 mL oral suspensio n take 5 millilit ers by mouth once daily 01/16 completed Not Available Not Available Not Available oxycodone 10 mg tablet Take 1 tablet every 6 hours by oral route for 3 days. 01/28 completed Not Available Not Available Not Available Prilosec 10 mg oral suspensio n,delayed release Take 2 mg every day by oral route. 10/29 completed Not Available Not Available Not Available GaviLyte- N 420 gram oral solution take as directed by prescrib er 11/14 completed Not Available Not Available Not Available Gavilyte- C 240 gram-22.7 2 gram-6.72 gram-5.84 gram oral solution USE DIRECTED active Not Available Not Available No t Available Vitamin D3 50 mcg (2,000 unit) capsule TAKE 1 CAPSULE BY MOUTH EVERY DAY active Not Available Not Available No t Available Chantix Starting Month Box 0.5 mg (11)-1 mg (42) tablets in dose pack Take 1 startr pk by oral route. 01/17/ 2023 07/15 /2024 completed Not Available Not Available Not Available lidocaine 5 % topical ointment APPLY ONE GRAM OF OINTMENT TO AFFECTED AREAS OF BACK AND KNEES 1 TO 4 TIMES DAILY NEEDED active Not Available Not Available No t Available Biofreeze (menthol) 4 % topical gel apply topicall y as directed twice a day 02/22 completed Not Available Not Available Not Available OxyContin 10 mg tablet,cr ush resistant ,extended release TAKE 1 TABLET BY MOUTH EVERY 12 HOURS 11/04 completed Not Available Not Available Not Available duloxetin e 40 mg capsule,d elayed release Take by oral route for 14 days. 03/13 completed Not Available Not Available Not Available Narcan 4 mg/actuat ion nasal spray take 2 spray BY NASAL ROUTE as directed by prescrib er if needed active Not Available Not Available No t Available lidocaine 5 % topical kit 6 [in_us]s by topical route. 2023 active Not Available Not Available Not Avai lable Fluarix Quad (PF) 60 mcg (15 mcg x 4)/0.5 mL IM syringe inject 0.5 millilit ers intramus cularly 12/29 completed Not Available Not Available Not Available Fluarix Quad (PF) 60 mcg (15 mcg x 4)/0.5 mL IM syringe inject 0.5 millilit ers intramus cularly 12/29 completed Not Available Not Available Not Available Vitals None Recorded Social History Question Answer Notes LastModified by Organizat ion Details LastModified Time Tobacco Smoking Status Current Every Day Smoker Not Available [facility] 02/24/2020 03:12:39 Do You Have An Advance Directive? No [id number] Information not available 02/24/2020 What Is Your Level Of Alcohol Consumption? Occasional [id number] Information not available 02/24/2020 What Is Your Level Of Caffeine Consumption? Moderate [id number] Information not available 02/24/2020 How Much Tobacco Do You Chew? None [id number] Information not available 02/24/2020 What Type Of Diet Are You Following? 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 No [id number] Information not available 02/24/2020 Marital Status Single Informatio n not available 02/26/2018 What Was The Date Of Your Most Recent Tobacco Screening? 03/12/2018 [id number] Information not available 02/24/2020 Seat Belts Used Routinely Yes Information not available 02/26/2018 Smoke Alarm In Home Yes Information not available 02/26/2018 At What Age Did You Start Smoking Tobacco? 31 [id number] Information not available 02/24/2020 How Much Tobacco Do You Smoke? 0.25 PPD [id number] Information not available 02/24/2020 General Stress Level Medium Information not available 02/26/2018 Do You Use Sunscreen Routinely? Yes [id number] Information not available 02/24/2020 How Many Years Have You Smoked Tobacco? 20 [id number] Information not available 02/24/2020 Sex: Unknown Functional Status Question Answer Note LastModified by Organization D etails LastModified Time What is your exercise level? Moderate [id number] Information not available 02/24/2020 Mental Status None recorded. Family History Relationship Description Onset Age of this Age Resolved Age Notes LastModified by Organization Details LastModified Time Brother Disease of liver wlamorie Not available 2017 09:41:50 Notes:also mother Medical History Condition Response Anemia Y Chicken Pox Y Gynecological HistoryNo gynecological history recorded. Obstetrics History GPAL:G 0 P 0 0 0 0 Immunizations Vaccine Type Date Status Note Provider Nam e and Address Organization Details Recorded Time COVID-19 vaccine, vector-nr, rS-ChAdOx1, PF, 0.5 mL 11/04/2020 completed Darwin Fox MD [address] [place] [address], [phone], [facility] 01/10/2021 13:30:30 Influenza, split virus, quadrivalent, PF 12/08/2019 completed Darwin Fox MD [address] [place] [address], [phone], [facility] 01/10/2021 13:30:30 Past Encounters Encounter ID Performer Location Encounter Start Date Encounter Closed Date Diagnosis/Indication Diagnosis SNOMED-CT Code Diagnosis ICD10 Code Diagnosis Note [id number] Jannet Roger NP MAIN [address] [address] 02/26/2018 09:18:16 02/26/2018 10:57:21 Diverticulitis of colon 779980105 K57.32 at least 4 attacks in last 6-9 months. Plantar fasciitis 618376 003 M72.2 Gastroesop hageal reflux disease 139251999 K21.9 Herpes simplex 30515791 B00.9 Adult heal th examination 130947568 Z00.00 [id number] Aaron Lowry [address] [address] 03/12/2018 12:34:36 03/20/2018 09:35:44 Foot pain 55748826 M79.673 Bilateral bone spur of calcaneum 6572755154 4695613 M77.31 [id number] Darwin Fox MD MAIN [address] [address] 05/01/2018 12:54:05 05/06/2018 14:50:32 Foot pain 59940994 M79.673 Bilateral bone spur of calcaneum 2111502617 2119081 M77.31 Herpes labialis 8646701 B00.1 [id number] Jannet Roger NP MAIN [address] [address] 08/15/2018 12:40:47 08/20/2018 08:45:14 Plantar fasciitis 393382114 M72.2 Menopausal flushing 1983 54447 N95.1 Depressive disorder 3548 9007 F32.89 [id number] Jannet Roger NP [facility] [address] [place] [address] 09/09/2018 11:23:36 09/11/2018 09:54:07 Depressive disorder 75750406 F32.89 Hiatal hernia 17422187 K 44.9 Bilateral plantar fasciitis 1925490152 3852632 M72.2 Hot sweats 802971904 R61 for the last 9 months and worse the last 6 months. [id number] Jannet Roger NP [facility] [address] [place] [address] 10/03/2018 13:47:36 10/03/2018 14:25:14 Depressive disorder 49192480 F32.89 Bilateral plantar fasciitis 3414382600 0641028 M72.2 Hot sweats 346494097 R61 for the last 9 months and worse the last 6 months. Adult heal th examination 720604911 Z00.00 [id number] Darwin Fox MD [facility] [address] [place] [id number] 10/29/2018 11:07:54 11/13/2018 11:18:58 Depressive disorder 72490838 F33.9 Erosive gastritis 041854 3261 654609 K29.70 Plantar fasciitis 586001 003 M72.2 [id number] Jannet Roger NP MAIN [address] [address] 11/11/2018 10:32:18 11/13/2018 13:05:03 Depressive disorder 32589205 F32.89 Adult heal th examination 597863468 Z00.00 Foot pain 02111882 M79.6 73 Chest pain 05335041 R07. 9 Tobacco user 333838400 Z 72.0 [id number] Jannet Roger NP MAIN [address] [address] 11/14/2018 09:39:02 11/14/2018 10:09:44 Costal chondritis 22159882 M94.0 [id number] Jannet Roger NP [address] [address] 12/11/2018 13:02:10 12/11/2018 16:47:44 Anxiety 60655424 F41.9 Posttrauma tic stress disorder 41364384 F43.10 Depressive disorder 3548 9007 F32.89 Insomnia 472376017 G47.0 0 no snore no gasping arousal tried trazodone made her blah didn't like it. Foot pain 32037106 M79.6 73 gabapentin upsets stomach and gives her cramps amitriptil ine gave her double vision nsaids make throat feel like something in it. tyl does nothing. [id number] Jannet Roger NP [facility] [address] [place] [address] 01/16/2019 09:40:39 01/16/2019 10:24:48 Foot pain 04213692 M79.673 gabapentin upsets stomach and gives her cramps amitriptil ine gave her double vision nsaids make throat feel like something in it. tyl does nothing. seen rivet hammer machine operator at [place], dr. youngblood, and [place]. without improvemen t; offered $300 of plt injections , can't afford. Anxiety 46506913 F41.9 Backache 489701321 M54.9 Insomnia 242561429 G47.0 0 no snore no gasping arousal tried trazodone made her blah didn't like it. [id number] Jannet Roger NP [facility] [address] [place] [address] 01/30/2019 09:17:31 01/30/2019 10:59:03 Tinea pedis 1388467 B35.3 Foot pain 15787556 M79.6 73 gabapentin upsets stomach and gives her cramps amitriptil ine gave her double vision nsaids make throat feel like something in it. tyl does nothing. seen rivet hammer machine operator at [place], dr. [place], and [place]. without improvemen t; offered $300 of plt injections , can't afford. Dyslipidemia 780614309 E 78.5 [id number] Jannet Roger NP [facility] [address] [place] [address] 02/18/2019 09:03:43 02/18/2019 09:38:06 Foot pain 20622543 M79.673 gabapentin upsets stomach and gives her cramps amitriptil ine gave her double vision nsaids make throat feel like something in it. tyl does nothing. seen rivet hammer machine operator at [place], dr. [place], and [place]. without improvemen t; offered $300 of plt injections , can't afford. Dyslipidemia 982465412 E 78.5 [id number] Jannet Roger NP [facility] [address] [place] [address] 03/11/2019 09:06:55 03/11/2019 10:10:30 Foot pain 05627716 M79.673 gabapentin upsets stomach and gives her cramps amitriptil ine gave her double vision nsaids make throat feel like something in it. tyl does nothing. seen rivet hammer machine operator at [place], dr. [place], and [place]. without improvemen t; offered $300 of plt injections , can't afford. Gastroesop hageal reflux disease 869595043 K21.9 heart burn if no omeprazole Joint pain 64021378 M25. 50 Hyperlipidemia 32906084 E78.5 [id number] Jannet Roger NP MAIN [address] [address] 04/10/2019 10:40:24 04/10/2019 12:05:23 Foot pain 95001990 M79.673 gabapentin upsets stomach and gives her cramps amitriptil ine gave her double vision nsaids make throat feel like something in it. tyl does nothing. seen rivet hammer machine operator at [place], dr. youngblood, and [place]. without improvemen t; offered $300 of plt injections , can't afford. Joint pain 21394914 M25. 50 [id number] Jannet Roger NP MAIN [address] [address] 04/28/2019 09:33:55 04/30/2019 15:16:28 Foot pain 63084181 M79.673 gabapentin upsets stomach and gives her cramps amitriptil ine gave her double vision nsaids make throat feel like something in it. tyl does nothing. seen rivet hammer machine operator at [place], dr. youngblood, and [place]. without improvemen t; offered $300 of plt injections , can't afford. Joint pain 86001411 M25. 50 Tooth disorder 690537209 K08.9 having 6 teeth removed on apr 19. likely couple extra oxycodone at that time ok through us [id number] Jannet Roger NP [facility] [address] [place] [address] 05/05/2019 09:41:00 05/05/2019 10:07:21 Joint pain 87387567 M25.50 [id number] Jannet Roger NP [facility] [address] [place] [address] 06/10/2019 08:55:25 06/10/2019 09:45:57 Cough 90327790 R05 Fibromyalgia 226173938 M 79.7 discussion today that fibromyalg ia not responsive to percocet, and cons of using it. plan is for pt to find other things to put in place of it when in pain; trial massage, accupunctu re etc as recommende d by rheum; she will do vitamin d this month and cont to use less percocet with goal of getting off in the next few months [id number] Jannet Roger NP MAIN [address] [address] 06/17/2019 11:01:53 06/17/2019 13:30:00 Eczema 74591444 L30.9 Cough 67322745 R05 [id number] Jannet Roger NP [address] [address] 07/07/2019 11:20:15 07/07/2019 11:45:37 Cough 58955491 R05 [id number] Jannet Roger NP [address] [address] 08/25/2019 12:50:21 08/25/2019 13:11:48 Lateral epicondylitis of left humerus 9186930017 41461 M77.12 Fibromyalgia 166816590 M 79.7 discussion today that fibromyalg ia not responsive to percocet, and cons of using it. plan is for pt to find other things to put in place of it when in pain; trial massage, accupunctu re etc as recommende d by rheum; she will do vitamin d this month and cont to use less percocet with goal of getting off in the next few months [id number] Jannet Roger NP [address] [address] 09/17/2019 11:42:34 09/17/2019 13:07:57 Lateral epicondylitis 157548331 M77.12 [id number] Jannet Roger NP [address] [address] 12/17/2019 10:27:18 12/17/2019 11:10:47 Fibromyalgia 702317713 M79.7 discussion today that fibromyalg ia not responsive to percocet, and cons of using it. plan is for pt to find other things to put in place of it when in pain; trial massage, accupunctu re etc as recommende d by rheum; she will do vitamin d this month and cont to use less percocet with goal of getting off in the next few months [id number] Jannet Roger NP MAIN [address] [address] 01/14/2020 10:30:40 01/14/2020 11:06:03 Fibromyalgia 850711372 M79.7 discussion today again that fibromyalg ia not responsive to percocet, and cons of using it. plan is for pt to find other things to put in place of it when in pain; can't use nsaid or tyl add baclofen and see if can use less percocet. can use ii at hs if needed and can try half tab during the day. ; fu one m to see how doing with change iin med (baclofen) [id number] Jannet Roger NP MAIN [address] [address] 02/11/2020 12:00:57 02/11/2020 12:13:44 Fibromyalgia 191748400 M79.7 discussion today again that fibromyalg ia not responsive to percocet, and cons of using it. plan is for pt to find other things to put in place of it when in pain; can't use nsaid or tyl add baclofen and see if can use less percocet. can use ii at hs if needed and can try half tab during the day. ; fu one m to see how doing with change iin med (baclofen) Herpes labialis 2060926 B00.1 [id number] Jannet Roger NP MAIN [address] [address] 03/09/2020 09:19:42 03/09/2020 09:28:44 Bronchitis 01968447 J40 [id number] Jannet Roger NP [facility] [address] [place] [address] 03/24/2020 13:15:41 03/24/2020 15:53:07 Chronic pain 42968776 G89.29 Pain in ri ght hip joint 8148203906 77471 M25.551 [id number] Jannet Roger NP MAIN [address] [address] 05/05/2020 12:07:32 05/05/2020 15:29:41 Chronic pain 02366479 G89.29 Pain in ri ght hip joint 2391676835 11148 M25.551 [id number] Jannet Roger NP [address] [address] 07/15/2020 11:12:06 07/15/2020 11:30:38 Chronic pain 95362152 G89.29 Pain in ri ght hip joint 3263744335 34083 M25.551 [id number] Jannet Roger NP [address] [address] 09/15/2020 13:00:40 09/15/2020 14:40:03 Chronic pain 11304458 G89.29 on antidepres sn, nsaid; allergic reaction, gabapentin ; gives diarrhea and cramps. Pain in ri ght hip joint 3200302602 20886 M25.551 [id number] Darwin Fox MD [address] [address] 11/18/2020 10:48:55 11/26/2020 14:40:20 Fibromyalgia 287513456 M79.7 [id number] STACEY CARROLL, [facility] [address] 12/29/2020 10:53:38 12/29/2020 12:12:39 Perioral dermatitis 604820160 L71.0 Adult heal th examination 148476266 Z00.00 Fibromyalgia 430817644 M 79.7 Anxiety 71632533 F41.9 Tick bite 39715280 W57.X XXA [id number] Jannet Roger NP [address] [address] 01/10/2021 10:50:16 01/10/2021 12:05:44 Perioral dermatitis 713074858 L71.0 red raised areas to cheeks, chin, forehead, worsened after clindamyci n use. Here today for skin culture. [id number] Jannet Roger NP [address] [address] 02/22/2021 11:41:10 02/22/2021 12:40:28 Fibromyalgia 066485028 M79.7 discussion today again that fibromyalg ia not responsive to percocet, and cons of using it. plan is for pt to find other things to put in place of it when in pain; can't use nsaid or tyl add baclofen and see if can use less percocet. can use ii at hs if needed and can try half tab during the day. ; fu one m to see how doing with change iin med (baclofen) gabapentin hurts her stomach with diarrhea. like has flu Tick bite 88136186 W57.X XXA Diabetes mellitus 169438 09 E13.42 Chronic pain 27747618 G8 9.29 on antidepres sn, nsaid; allergic reaction, gabapentin ; gives diarrhea and cramps. [id number] Jannet Roger NP [facility] [address] [place] [address] 05/17/2021 11:12:54 05/17/2021 13:40:27 Fibromyalgia 913655036 M79.7 discussion today again that fibromyalg ia not responsive to percocet, and cons of using it. plan is for pt to find other things to put in place of it when in pain; can't use nsaid or tyl add baclofen and see if can use less percocet. can use ii at hs if needed and can try half tab during the day. ; fu one m to see how doing with change iin med (baclofen) gabapentin hurts her stomach with diarrhea. like has flu Diabetes mellitus 176062 09 E13.42 Chronic pain 62731618 G8 9.29 on antidepres sn, nsaid; allergic reaction, gabapentin ; gives diarrhea and cramps. [id number] Jannet Roger NP [facility] [address] [place] [address] 07/25/2021 13:07:25 07/25/2021 17:00:39 Fibromyalgia 874587132 M79.7 discussion today again that fibromyalg ia not responsive to percocet, and cons of using it. plan is for pt to find other things to put in place of it when in pain; can't use nsaid or tyl add baclofen and see if can use less percocet. can use ii at hs if needed and can try half tab during the day. ; fu one m to see how doing with change iin med (baclofen) gabapentin hurts her stomach with diarrhea. like has flunot getting Diabetes mellitus 914858 09 E13.42 Chronic pain 96702116 G8 9.29 on antidepres sn, nsaid; allergic reaction, gabapentin ; gives diarrhea and cramps.jus t enough to work on her pain [id number] Jannet Roger NP [facility] [address] [place] [address] 08/15/2021 11:15:03 08/15/2021 15:06:29 Fibromyalgia 019462048 M79.7 discussion today again that fibromyalg ia not responsive to percocet, and cons of using it. plan is for pt to find other things to put in place of it when in pain; can't use nsaid or tyl add baclofen and see if can use less percocet. can use ii at hs if needed and can try half tab during the day. ; fu one m to see how doing with change iin med (baclofen) gabapentin hurts her stomach with diarrhea. like has flunot getting Diabetes mellitus 103512 09 E13.42 predm Chronic pain 43939298 G8 9.29 on antidepres sn, nsaid; allergic reaction, gabapentin ; gives diarrhea and cramps.jus t enough to work on her pain Hyperlipidemia 04288317 E78.5 [id number] Jannet Roger NP [facility] [address] [place] [id number] 03/13/2022 11:51:57 03/13/2022 14:43:59 Fibromyalgia 190530895 M79.7 discussion today again that fibromyalg ia not responsive to percocet, and cons of using it. plan is for pt to find other things to put in place of it when in pain; can't use nsaid or tyl add baclofen and see if can use less percocet. can use ii at hs if needed and can try half tab during the day. ; fu one m to see how doing with change iin med (baclofen) gabapentin hurts her stomach with diarrhea. like has flunot getting Chronic pain 25247633 G8 9.29 on antidepres sn, nsaid; allergic reaction, gabapentin ; gives diarrhea and cramps.jus t enough to work on her pain [id number] Jannet Roger NP [facility] [address] [place] [id number] 05/23/2022 10:41:23 05/23/2022 11:13:05 Hyperlipidemia 53041221 E78.5 Nicotine dependence 5629 4008 F17.200 discussion on backing off the chitra Vitamin D deficiency 347 98522 E55.9 Chronic pain 68812010 G8 9.29 on antidepres sn, nsaid; allergic reaction, gabapentin ; gives diarrhea and cramps.jus t enough to work on her pain Hepatitis C screening 41 [id number] Z11.59 [id number] Jannet Roger NP [facility] [address] [place] [address] [phone] 0 06/15/2022 10:10:32 06/15/2022 11:35:38 Hyperlipidemia 85249983 E78.5 Chronic pain 49601747 G8 9.29 Vitamin B deficiency 479 38563 E53.9 [id number] Jannet Roger NP [facility] [address] [place] [address] [phone] 0 10/03/2022 09:14:29 10/03/2022 09:36:12 Chronic pain 67363331 G89.29 Type 2 marley betes mellitus 76835448 E11.9 [id number] Jannet Roger NP [facility] [address] [place] [address] [phone] 0 02/08/2023 11:01:02 02/08/2023 11:21:31 Chronic pain 76694477 G89.29 [id number] Jannet Roger NP MAIN [address] [phone] 0 02/22/2023 10:51:17 02/22/2023 18:35:42 Abdominal pain 61220513 R10.9 when doesn't eat Chronic pain 01469475 G8 9.29 Type 2 marley betes mellitus 84389665 E11.9 [id number] STACEY CARROLL, [facility]- [facility] [address] [place] [address] [phone] 0 06/06/2023 10:53:06 06/06/2023 11:52:33 Chronic pain 15270688 G89.29 Depressive disorder 3548 9007 F32.89 [id number] Jannet Roger NP [facility] [address] [place] [address] [phone] 0 07/05/2023 10:22:16 07/05/2023 11:41:52 Fibromyalgia 653839176 M79.7 Chronic pain 32249794 G8 9.29 Depressive disorder 3548 9007 F32.89 Screening mammography 24 958662 Z12.31 Type 2 marley betes mellitus 77886020 E11.9 [id number] Jannet Roger NP [facility] [address] [place] [address] [phone] 0 08/06/2023 10:44:57 08/06/2023 11:46:30 Fibromyalgia 484145875 M79.7 Chronic pain 08880411 G8 9.29 Depressive disorder 3548 9007 F32.89 Tobacco user 692588301 Z 72.0 Prediabetes 298877298 R7 3.03 Gastroesop hageal reflux disease 670481555 K21.9 Screening for malignant neoplasm of colon 008410745 Z12.11 Insomnia 747957049 G47.0 0 no snore no gasping arousal tried trazodone made her blah didn't like it. 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 [id number] Jannet Roger NP [facility] [address] [place] [address] [phone] 0 09/10/2023 09:30:04 09/10/2023 10:44:57 Child attention deficit disorder 479464559 F90.9 Chronic pain 75347225 G8 9.29 Insomnia 901987395 G47.0 0 no snore no gasping arousal tried trazodone made her blah didn't like it. [id number] Jannet Roger NP [facility] [address] [place] [address] [phone] 0 10/09/2023 11:16:17 10/09/2023 13:39:04 Child attention deficit disorder 997376265 F90.9 Chronic pain 76913037 G8 9.29 Abdominal pain 73946662 R10.9 when doesn't eat Hypercholesterolemia 136 65196 E78.00 [id number] Jannet Roger NP [facility] [address] [place] [address] [phone] 0 11/05/2023 10:29:08 11/05/2023 12:37:36 Backache 471872887 M54.9 Child atte ntion deficit disorder 588861541 F90.9 Chronic pain 11652211 G8 9.29 Abdominal pain 84885318 R10.9 when doesn't eat Dyslipidemia 778674577 E 78.5 Hyperkalemia 50328261 E8 7.5 [id number] Jannet Roger NP [facility] [address] [place] [address] [phone] 0 01/01/2024 10:12:23 01/03/2024 08:40:02 Fibromyalgia 652538847 M79.7 Child atte ntion deficit disorder 810962638 F90.9 Chronic pain 07548058 G8 9.29 Hyperkalemia 28409368 E8 7.5 Serum bob min B12 below reference range 360158692 R79.89 [id number] Jannet Roger NP [facility] [address] [place] [address] [phone] 0 01/17/2024 11:34:22 01/17/2024 12:26:30 Chronic pain 48470017 G89.29 Hyperkalemia 29883401 E8 7.5 Backache 717429802 M54.9 [id number] Jannet Roger NP [facility] [address] [place] [address] [phone] 0 01/29/2024 10:01:40 01/29/2024 10:21:27 Chronic pain 60249765 G89.29 for fibromyalg ia as allergic to nsaid Neuropathy 834474341 G62 .9 added a2023 Fibromyalgia 977355114 M 79.7 Child atte ntion deficit disorder 086966374 F90.9 [id number] Jannet Roger NP [facility] [address] [place] [address] [phone] 0 02/19/2024 10:30:08 02/19/2024 10:54:38 Fibromyalgia 507965223 M79.7 Chronic pain 61368345 G8 9.29 for fibromyalg ia as allergic to nsaidoxyco ntin did not help in the past Neuropathy 348555898 G62 .9 added a2023 Child atte ntion deficit disorder 054291076 F90.9 [id number] Jannet Roger NP [facility] [address] [place] [address] [phone] 0 03/18/2024 11:23:26 03/18/2024 12:01:20 Fibromyalgia 583756482 M79.7 arms ache; when runs out of cymbalta notes pain worse in arms Chronic pain 87841279 G8 9.29 for fibromyalg ia as allergic to nsaidoxyco ntin did not help in the past Neuropathy 216838724 G62 .9 twice a day working Child atte ntion deficit disorder 045766834 F90.9 Prediabetes 525948109 R7 3.03 Herpes simplex 87975087 B00.9 Tinea pedis 0495593 B35. 3 Backache 382719184 M54.9 [id number] Jannet Roger NP [facility] [address] [place] [address] [id number] 0 04/14/2024 10:44:19 04/14/2024 11:32:02 Fibromyalgia 637628491 M79.7 arms ache; when runs out of cymbalta notes pain worse in arms Chronic pain 80814612 G8 9.29 for fibromyalg ia as allergic to nsaidoxyco ntin did not help in the past Neuropathy 776500909 G62 .9 twice a day working Child atte ntion deficit disorder 850760432 F90.9 Backache 609732092 M54.9 Prediabetes 284609930 R7 3.03 Bronchitis 24834707 J40 sick for one week and getting worsehas inhaler Cough 87847530 R05.9 [id number] Jannet Roger NP [facility] [address] [place] [address] 78614-345 0 05/15/2024 10:28:55 05/15/2024 10:51:59 Tobacco dependence syndrome 47436762 F17.200 [facility] for ldct Prediabetes 850860671 R7 3.03 labs due again soon; will order and send with ldct Hypercholesterolemia 136 65266 E78.00 Chronic pain 49941916 G8 9.29 for fibromyalg ia as allergic to nsaidoxyco ntin did not help in the past Child atte ntion deficit disorder 051921413 F90.9 [id number] Jannet Roger NP [facility] [address] [place] [address] 28802-997 0 06/03/2024 11:18:14 06/03/2024 12:23:41 Tobacco dependence syndrome 51606228 F17.200 [facility] for ldct Hypercholesterolemia 136 03965 E78.00 Chronic pain 68093308 G8 9.29 for fibromyalg ia as allergic to nsaidoxyco ntin did not help in the past Child atte ntion deficit disorder 184882782 F90.9 Prediabetes 962794549 R7 3.03 labs due again soon; will order and send with ldct [id number] Jannet Roger NP [facility] [address] [place] [address] [id number] 0 07/03/2024 10:55:41 07/03/2024 11:30:58 Chronic pain 26362103 G89.29 for fibromyalg ia as allergic to nsaidoxyco ntin did not help in the past Child atte ntion deficit disorder 741705679 F90.9 [id number] Jannet Roger NP [facility] [address] [place] [address] [phone] 0 07/21/2024 08:55:45 07/21/2024 09:41:40 Chronic pain 06068568 G89.29 for fibromyalg ia as allergic to nsaidoxyco ntin did not help in the past Child atte ntion deficit disorder 538994383 F90.9 Cyst of pancreas 3184842 0 K86.2 Health Concerns Section Related Observation LastModified by Organization Detai ls LastModified Time None Recorded Concern Status LastModified by Organization Details LastModified Time None Recorded Advance Directives Directive N: Payers Encounter Date Sequence Insurance Name Policy Number Policy Lester Covered Member ID Lester Member ID Guarantor Name 04/14/2024 1 [facility] IN[place] THE [facility] NET PLAN (MEDICAID HMO) [id number] July L Sears [id number] Zahraa Sears 05/15/2024 1 [facility] - HEALTH NET PLAN (MEDICAID HMO) [id number] July L Sears [id number] July Sears 06/03/[address] [facility] PLAN (MEDICAID HMO) [id number] July L Sears [id number] Zahraa Sears 07/03/[address] [facility] PLAN (MEDICAID HMO) [id number] July L Sears [id number] Zahraa Sears 07/21/[address] [facility] PLAN (MEDICAID HMO) [id number] July L Sears [id number] July Sears OBGyn Episode No OBEpisode recorded.
[2024-08-19 15:23] VITALS: BMI 30.1
--- NOTE | 2024-08-20 11:58 | HO.ANESPROP2 ---
Documented by User: Leana Estrella NP 08/20/24 11:58 HPI - Anesthesia Eval Consult details Narrative: 59yo F for Colonoscopy [facility] Past Medical History Medical History Elevated blood sugar ADD (attention deficit disorder) Anxiety and depression GERD (gastroesophageal reflux disease) Diverticulosis Hyperlipidemia Neuropathy Fibromyalgia Surgical History Surgical History Hx of removal of cyst History of surgery History of surgery Hx of thumb surgery Hx of tonsillectomy History of bilateral carpal tunnel release Hx of hysterectomy Hx of tubal ligation History of lumbar fusion Hx of arthroscopy of shoulder Social History Social History Household Members Other:: sister and great nephew Are you a primary home health care physician to a significant other at home: No Do you presently have visiting nurse or other home services: No Patient Tobacco Use Status: Current everyday Tobacco user Tobacco use type: Cigarette Meds Allergies Allergy/AdvReac Type Severity Reaction Status Date / Time naproxen [NAPROXEN] Allergy Severe THROAT Verified 08/22/24 07:12 SWELLING amitriptyline [AMITRIPTYLINE] Allergy Unknown VISION Verified 08/22/24 07:12 CHANGES cephalexin [From KEFLEX] Allergy Unknown FACIAL Verified 08/22/24 07:12 SWELLING bupropion [From Wellbutrin] Allergy Unknown Verified 08/22/24 07:12 tramadol Allergy Unknown Verified 08/22/24 07:12 Home Medications ?Medication ?Instructions ?Recorded ?Confirmed ?Last Taken ?Type ascorbic acid (vitamin C) 500 mg 500 mg PO DAILY 07/22/24 08/22/24 Unknown History tablet (Vitamin C) carisoprodol 350 mg tablet 350 mg PO BID 07/22/24 08/22/24 Unknown History cyanocobalamin (vitamin B-12) 500 500 mcg PO DAILY 07/22/24 08/22/24 Unknown History mcg tablet dextroamphetamine-amphetamine 15 1 tab PO DAILY 07/22/24 08/22/24 Unknown History mg tablet duloxetine 20 mg capsule,delayed 20 mg PO BID 07/22/24 08/22/24 Unknown History release lidocaine 5 % topical ointment topical QD-QID PRN Pain 07/22/24 Unknown History omeprazole 40 mg capsule,delayed 40 mg PO DAILY 07/22/24 08/22/24 Unknown History release oxycodone-acetaminophen 10 mg-325 1 tab PO Q4H PRN Pain 07/22/24 08/22/24 Unknown History mg tablet pravastatin 40 mg tablet 40 mg PO DAILY 07/22/24 08/22/24 Unknown History pregabalin 50 mg capsule 50 mg PO BID 07/22/24 08/22/24 Unknown History ramelteon 8 mg tablet (Rozerem) 8 mg PO BEDTIME 07/22/24 08/22/24 Unknown History valacyclovir 500 mg tablet 500 mg PO BID 07/22/24 08/22/24 Unknown History vitamin K2 100 mcg capsule 100 mcg PO DAILY 07/22/24 08/22/24 Unknown History Exam Height,Weight and Vital Signs: Height 5 ft 2 in Weight 74.616 kg Assessment and Plan Assessment Anesthesia Assessment: Chart Reviewed Documented by User: Charu Zuñiga MD 08/22/24 08:06 [facility] Past Medical History Medical History Elevated blood sugar ADD (attention deficit disorder) Anxiety and depression GERD (gastroesophageal reflux disease) Diverticulosis Hyperlipidemia Neuropathy Fibromyalgia Surgical History Surgical History Hx of removal of cyst History of surgery History of surgery Hx of thumb surgery Hx of tonsillectomy History of bilateral carpal tunnel release Hx of hysterectomy Hx of tubal ligation History of lumbar fusion Hx of arthroscopy of shoulder History of Problems with Anesthesia: No Social History Social History Household Members Other:: sister and great nephew Are you a primary home health care physician to a significant other at home: No Do you presently have visiting nurse or other home services: No Patient Tobacco Use Status: Current everyday Tobacco user Tobacco use type: Cigarette Meds Allergies Allergy/AdvReac Type Severity Reaction Status Date / Time naproxen [NAPROXEN] Allergy Severe THROAT Verified 08/22/24 07:12 SWELLING amitriptyline [AMITRIPTYLINE] Allergy Unknown VISION Verified 08/22/24 07:12 CHANGES cephalexin [From KEFLEX] Allergy Unknown FACIAL Verified 08/22/24 07:12 SWELLING bupropion [From Wellbutrin] Allergy Unknown Verified 08/22/24 07:12 tramadol Allergy Unknown Verified 08/22/24 07:12 Home Medications ?Medication ?Instructions ?Recorded ?Confirmed ?Last Taken ?Type ascorbic acid (vitamin C) 500 mg 500 mg PO DAILY 07/22/24 08/22/24 Unknown History tablet (Vitamin C) carisoprodol 350 mg tablet 350 mg PO BID 07/22/24 08/22/24 Unknown History cyanocobalamin (vitamin B-12) 500 500 mcg PO DAILY 07/22/24 08/22/24 Unknown History mcg tablet dextroamphetamine-amphetamine 15 1 tab PO DAILY 07/22/24 08/22/24 Unknown History mg tablet duloxetine 20 mg capsule,delayed 20 mg PO BID 07/22/24 08/22/24 Unknown History release lidocaine 5 % topical ointment topical QD-QID PRN Pain 07/22/24 Unknown History omeprazole 40 mg capsule,delayed 40 mg PO DAILY 07/22/24 08/22/24 Unknown History release oxycodone-acetaminophen 10 mg-325 1 tab PO Q4H PRN Pain 07/22/24 08/22/24 Unknown History mg tablet pravastatin 40 mg tablet 40 mg PO DAILY 07/22/24 08/22/24 Unknown History pregabalin 50 mg capsule 50 mg PO BID 07/22/24 08/22/24 Unknown History ramelteon 8 mg tablet (Rozerem) 8 mg PO BEDTIME 07/22/24 08/22/24 Unknown History valacyclovir 500 mg tablet 500 mg PO BID 07/22/24 08/22/24 Unknown History vitamin K2 100 mcg capsule 100 mcg PO DAILY 07/22/24 08/22/24 Unknown History Exam Airway Mallampati Class: II (edentulous) TM Dist: >3cm Neck ROM: Full Denture: Upper and Lower Loose/Missing/Broken Teeth: Yes, Upper and Lower Heart: RRR Lungs: CTA Assessment and Plan Assessment Anesthesia Assessment: Anesthesia Plan Discussed Final Anesthetic Review History of Problems with Anesthesia: No NPO: Yes ASA Class: II Final Preanesthetic Review: Meds/Allgs Chart Reviewed, Consent Obtained/Reviewed and Anes Risks/Benef Reviewed Patient Risk: Low Procedure Risk: Low Anesthetic Plan Anesthetic Plan: MAC: Disposition: Standard PACU
[2024-08-22 07:06] VITALS: BMI 29.4
[2024-08-22] MEDS: Lactated Ringers 1,000 ML 100 ML IVCONT (07:17)
[2024-08-22 07:25] VITALS: BP 106/81; PULSE 85; RESP 18; TEMP 36.6; O2SAT 98
--- NOTE | 2024-08-22 08:05 | MHC.SHP ---
Pre-Procedural Eval Section A - 24 Hr Update-Section A only Date of Service: 08/22/24 Section B - Complete if H&P > 30 days Chief Complaint: Generalized abdominal pain Details of Present Illness: see H&P no changes Relevant Family History (Specify if Yes): No Relevant Social History: None Present Medications: see Short Stay Collaborative assessment Medical History: No relevant PMH History of Previous Operations: No relevant previous surgery Allergies: Allergies Allergy/AdvReac Type Severity Reaction Status Date / Time naproxen [NAPROXEN] Allergy Severe THROAT Verified 08/22/24 07:12 SWELLING amitriptyline [AMITRIPTYLINE] Allergy Unknown VISION Verified 08/22/24 07:12 CHANGES cephalexin [From KEFLEX] Allergy Unknown FACIAL Verified 08/22/24 07:12 SWELLING bupropion [From Wellbutrin] Allergy Unknown Verified 08/22/24 07:12 tramadol Allergy Unknown Verified 08/22/24 07:12 Review of Systems Sugical H&P ROS: Negative: Constitution, Cardiovascular, Respiratory, Neurological, Psychiatric, Hem-Onc, Allergic/Immunologic, Gastrointestinal, Genitourinary, Musculoskeletal, Integumentary, Endocrine and Eyes/Ears/Nose/Throat Exam Surgical H&P Exam: Normal: HEENT, Normal: Heart, Normal: Lungs, Normal: Extremities, Normal: Abdomen, Normal: Skin and Normal: Neurological Plan Diagnosis/Plan: Unchanged I have reviewed the history and physical and performed a pertinent physical examination on my patient. No changes have occurred unless specified. Time Spent With Patient Time: Total time managing care of this patient today ____ minutes.
[2024-08-22 08:32] VITALS: BP 93/59; PULSE 73; RESP 18; TEMP 36.5; O2SAT 98
[2024-08-22 08:46] VITALS: BP 104/80; PULSE 72; RESP 18; TEMP 36.3; O2SAT 100
--- NOTE | 2024-08-22 09:20 | OP_ITS ---
DATE OF SERVICE: 08/22/2024 SURGEON: Luis Burr MD INDICATIONS: Abdominal pain. PREOPERATIVE DIAGNOSIS: POSTOPERATIVE DIAGNOSIS: PROCEDURE PERFORMED: Colonoscopy to the terminal ileum with biopsy. ESTIMATED BLOOD LOSS: COMPLICATIONS: ANESTHESIA: Monitored anesthesia care. ASSISTANTS: SPECIMENS: DESCRIPTION OF PROCEDURE: A history and physical was performed. The risks and benefits of the procedure were explained to the patient. Informed consent was obtained. The patient was placed in the left lateral decubitus position. A digital rectal exam was performed and was found to be normal. The Olympus pediatric video colonoscope was introduced into the rectum and advanced to the cecum. The cecum was identified by transillumination, palpation, and identification of ileocecal valve. Examination was performed. The scope was removed. She tolerated the procedure well and was returned to the recovery area in stable condition. FINDINGS: The terminal ileum was examined and appeared normal. The visualized colonic mucosa was normal. The quality of the prep was good. Random biopsies were obtained from the terminal ileum and sigmoid. There was a small polyp at 15 cm measuring less than 5 mm, which was identified and removed with a biopsy forceps. Retroflexed examination showed moderate-sized internal hemorrhoids. IMPRESSION: Colon polyp. RECOMMENDATION: Follow up the biopsy results. MD SUZY Read/MODL / [id number]
== END 2024-08-22 09:02 | disposition home or self-care (01) ==
PROVIDERS: PCP Nurse Practitioner Family; Visit Provider Internal Medicine Gastroenterology
PROC: 0DJD8ZZ Inspection of Lower Intestinal Tract, Via Natural or Artificial Opening Endoscopic (ICD-10-PCS; CPT 45378; principal; 2024-08-22 08:20)
DX: R10.84 Generalized abdominal pain (principal); R19.7 Diarrhea, unspecified; D12.7 Benign neoplasm of rectosigmoid junction; K21.9 Gastro-esophageal reflux disease without esophagitis; E78.5 Hyperlipidemia, unspecified; R73.9 Hyperglycemia, unspecified; G62.9 Polyneuropathy, unspecified; M79.7 Fibromyalgia; F41.9 Anxiety disorder, unspecified; Z79.899 Other long term (current) drug therapy; Z88.6 Allergy status to analgesic agent; Z88.8 Allergy status to other drugs, medicaments and biological substances; Z98.890 Other specified postprocedural states; F17.210 Nicotine dependence, cigarettes, uncomplicated
CPT/HCPCS: 45380; 88305; J2003; J2704